=== PATIENT | female | born 1955 | race Caucasian/White ===

== ENCOUNTER 2019-08-06 09:58 | Outpatient (CLI) | payer OTHER, SELFPAY ==
--- NOTE | 2019-08-06 11:00 | NEURO_ITS ---
Patient Number: [id number] Impression: # Complains of numbness of left hand. # Mild left Carpal Tunnel Syndrome. # No ulnar neuropathy. # Normal needle/EMG exam. Nerve Conduction Studies Anti Sensory Summary Table Stim Site NR Peak (ms) P-T Amp (?V) Site1 Site2 Delta-P (ms) Dist (cm) Douglas (m/s) Left Median Anti Sensory (2-3nd Digit) Wrist 3.2 42.5 Wrist 2-3nd Digit 3.2 14.0 44 Wrist 3.2 21.8 Wrist 2-3nd Digit 3.2 14.0 44 Left Radial Anti Sensory (Base 1st Digit) Wrist 1.8 16.1 Wrist Base 1st Digit 1.8 0.0 Left Ulnar Anti Sensory (5th Digit) Wrist 2.1 51.8 Wrist 5th Digit 2.1 14.0 67 Motor Summary Table Stim Site NR Onset (ms) O-P Amp (mV) Site1 Site2 Delta-0 (ms) Dist (cm) Douglas (m/s) Left Median Motor (Abd Poll Brev) Wrist 3.4 3.5 Elbow Wrist 5.3 30.0 57 Elbow 8.7 1.6 Left Ulnar Motor (Abd Dig Minimi) Wrist 2.1 5.6 A Elbow Wrist 4.7 28.0 60 A Elbow 6.8 5.0 F Wave Studies NR F-Lat (ms) L-R F-Lat (ms) Left Median (Mrkrs) (Abd Poll Brev) 29.24 Left Ulnar (Mrkrs) (Abd Dig Min) 29.61 EMG Side Muscle Nerve Root Ins Act Fibs Amp Dur Recrt Comment Left 1stDorInt Ulnar C8-T1 Nml Nml Nml Nml Nml Left Ext Indicis Radial (Post Int) C7-8 Nml Nml Nml Nml Nml Left Ext Digitorum Radial (Post Int) C7-8 Nml Nml Nml Nml Nml Left BrachioRad Radial C5-6 Nml Nml Nml Nml Nml Left PronatorTeres Median C6-7 Nml Nml Nml Nml Nml Left Abd Poll Brev Median C8-T1 Nml Nml Nml Nml Nml MTDD
== END 2019-08-06 09:59 | disposition home or self-care (01) ==
PROVIDERS: PCP Family Medicine Adolescent Medicine; Visit Provider Physician Assistant
DX: R20.0 Anesthesia of skin (principal); G56.02 Carpal tunnel syndrome, left upper limb
CPT/HCPCS: 95886; 95909

== ENCOUNTER 2020-02-15 14:12 | Outpatient (CLI) | payer OTHER, SELFPAY ==
--- NOTE | ~2020-02-15 | US_ITS ---
EXAMINATION: US carotid duplex BI DATE: 02/15/2020 15:00 INDICATION: Left hemiparesis. TECHNIQUE: Grayscale, color Doppler, and pulsed Doppler images of the cervical carotid arteries were obtained. The degree of vessel stenosis is placed in one of the following categories: normal, <50%, 5 0-69%, >=70% but less than near-occlusion, near-occlusion, or total occlusion. Note that percent sten osis relative to normal distal artery lumen diameter is indirectly measured from velocity measurement s as described by David, et al. Radiology 2003; 229:340-346. COMPARISON: None. FINDINGS: RIGHT: The right common carotid artery (CCA) peak systolic velocity (PSV) is 90 cm/s. The right internal car otid artery (ICA) PSV is 90 cm/s. The right ICA end-diastolic velocity (EDV) is 39 cm/s. The right IC A/CCA PSV ratio is 1.0. Grayscale and color Doppler images yield an estimate of <50% diameter reducti on from plaque in the ICA. There is antegrade flow in the right vertebral artery. LEFT: The left CCA PSV is 82 cm/s. The left ICA PSV is 66 cm/s. The left ICA EDV is 29 cm/s. The left ICA/C CA PSV ratio is 0.8. Grayscale and color Doppler images yield an estimate of <50% diameter reduction from plaque in the ICA. There is antegrade flow in the left vertebral artery. IMPRESSION: 1. <50% stenosis in the right internal carotid artery. 2. <50% stenosis in the left internal carotid artery. Reviewed, dictated and finalized at location A. E DISPOSAL PLANT OPERATOR
== END 2020-02-15 14:13 | disposition home or self-care (01) ==
PROVIDERS: PCP Family Medicine Adolescent Medicine; Visit Provider Family Medicine Adolescent Medicine
DX: I65.23 Occlusion and stenosis of bilateral carotid arteries (principal)
CPT/HCPCS: 93880

== ENCOUNTER → 2020-07-11 13:26 | Outpatient (CLI) | payer OTHER, SELFPAY ==
--- NOTE | ~2020-07-11 | MM_ITS ---
EXAMINATION: MM screening [facility] BI w heather HISTORY: Screening TECHNIQUE: Craniocaudal and mediolateral oblique 3-D tomosynthesis images were obtained and synthetic 2-D images were generated. CAD analysis was submitted and interpreted. COMPARISON: Comparison to multiple prior studies sequentially, with oldest reviewed study dated 12/27. BREAST PARENCHYMAL COMPOSITION: Breast composed of scattered areas of fibroglandular density. FINDINGS: There is no evidence of suspicious mass, calcification, or architectural distortion to sugg est malignancy in either breast. There has been no suspicious interval change. IMPRESSION: 1. No mammographic evidence of malignancy. 2. Recommend routine screening mammography in one year. BI-RADS Category 1: Negative Reviewed, dictated and finalized at location A.
--- NOTE | ~2020-07-11 | DEXA_ITS ---
Bone Density Report Name: Fabi Jin Age: 64 Sex: Female Ethnicity: White Date of : 1955 Indication: postmenopausal; screening for osteoporosis; height loss; asthma or emphysema; Referring Provider: Kenzie, Moon Study: Bone densitometry was performed. Exam Date: July 11, 2020 Accession number: [id number] Bone Density: Region BMD T-score Z-score Classification AP Spine (L1-L4) 1.075 0.3 2.0 Normal Femoral Neck (Left) 0.897 0.4 1.9 Normal Total Hip (Left) 1.121 1.5 2.7 Normal Femoral Neck (Right) 0.842 -0.1 1.4 Normal Total Hip (Right) 0.968 0.2 1.4 Normal Total Hip Mean 1.045 0.9 2.1 Normal World Health Organization criteria for BMD impression classify patients as: Normal (T-score at or above -1.0), Osteopenia (T-score between -1.0 and -2.5), or Osteoporosis (T-score at or below -2.5). 10-year Fracture Risk: FRAX not reported because: All T-scores for Spine Total, Hip Total, Femoral Neck at or above -1.0 Previous Exams: Region Exam Age BMD T-score BMD Change BMD Change Date g/cm2 vs Baseline vs Previous AP Spine(L1-L4) 07/11/2020 64 1.075 0.3 -0.048 0.020 06/04/2016 60 1.055 0.1 -0.069 -0.069 05/20/2006 50 1.124 0.7 Total Hip(Left) 07/11/2020 64 1.121 1.5 -0.191 -0.081* 06/04/2016 60 1.202 2.1 -0.110 -0.110 05/20/2006 50 1.312 3.0 Total Hip(Right) 07/11/2020 64 0.968 0.2 -0.252 -0.148* 06/04/2016 60 1.116 1.4 -0.104 -0.104 05/20/2006 50 1.220 2.3 *Denotes significance at 95% confidence level, LSC for AP Spine = 0.022 g/cm2, LSC for Total Hip = 0.027 g/cm2 Clinical Information Provided by Patient: Has used the following medications: Vitamin D Has the following medical conditions: Asthma or Emphysema Patient maximum height was 65.5 Menopause Age: 49 No regular weight bearing exercise Drinks caffeinated beverages Onset of menses at age 11 Number of children 4 Impression: The patient has normal bone mass. The BMD for the Total Hip(Left) decreased, changing by -0.081 since the last DXA exam. The BMD for the Total Hip(Right) decreased, changing by -0.148 since the last DXA exam. Discussion: BONE DENSITY IS ABOVE THE MINIMUM DESIRABLE LEVEL AT ALL SKELETAL SITES TESTED. This patient?s bone mineral density is above the minimum desirable level (T-score -1.0 or better)
== END ==
PROVIDERS: PCP Family Medicine Adolescent Medicine; Visit Provider Nurse Practitioner
DX: Z12.31 Encounter for screening mammogram for malignant neoplasm of breast (principal); Z78.0 Asymptomatic menopausal state
CPT/HCPCS: 77063; 77067; 77080

== ENCOUNTER → 2021-02-04 09:59 | Outpatient (CLI) | payer MEDICARE, OTHER, SELFPAY ==
--- NOTE | ~2021-02-04 | XR_ITS ---
EXAMINATION: XR chest 2V DATE: 02/04/2021 10:57 INDICATION: Dyspnea on exertion, history of COVID 19 TECHNIQUE: Frontal and lateral views of the chest are obtained COMPARISON: 06/09/2017 FINDINGS: The lungs are free of acute opacities. There is no pleural effusion or pneumothorax. The ca rdiomediastinal silhouette is normal. There is moderate thoracic spondylosis. Suture anchors are note d in the left humeral head. IMPRESSION: 1. No acute cardiopulmonary abnormality. Reviewed, dictated and finalized at location A. SURVEYOR
== END ==
PROVIDERS: PCP Family Medicine Adolescent Medicine; Visit Provider Family Medicine Adolescent Medicine
DX: R06.09 Other forms of dyspnea (principal)
CPT/HCPCS: 71046

== ENCOUNTER → 2021-07-13 10:02 | Outpatient (CLI) | payer MEDICARE, OTHER, SELFPAY ==
--- NOTE | ~2021-07-13 | MM_ITS ---
EXAMINATION: MM screening [facility] BI w heather HISTORY: Screening mammogram TECHNIQUE: Craniocaudal and mediolateral oblique 3-D tomosynthesis images were obtained and synthetic 2-D images were generated. CAD analysis was submitted and interpreted. COMPARISON: 07/11/2020, 09/08/2018, 05/03/2016 BREAST PARENCHYMAL COMPOSITION: There are scattered areas of fibroglandular density. FINDINGS: There is a chronic and stable asymmetry in the outer left breast on the craniocaudal view. There is no suspicious mass, calcification, or architectural distortion to suggest malignancy in eith er breast. There has been no suspicious interval change. IMPRESSION: 1. No mammographic evidence of malignancy. 2. Recommend routine screening mammography in one year. BI-RADS Category 2: Benign finding(s). Reviewed, dictated and finalized at location A.
== END ==
PROVIDERS: PCP Family Medicine Adolescent Medicine; Visit Provider Obstetrics & Gynecology Gynecology
DX: Z12.31 Encounter for screening mammogram for malignant neoplasm of breast (principal)
CPT/HCPCS: 77063; 77067

== ENCOUNTER 2021-07-28 07:40 | Outpatient (CLI) | payer MEDICARE, OTHER, SELFPAY ==
--- NOTE | 2021-07-28 07:55 | ECHO_ITS ---
Patient Info Name: Fabi Jin Age: 65 years : 1955 Gender: Female Ht: 63 in Wt: 240 lbs BSA: 2.26 m2 HR: 75 bpm BP: 138 / 91 mmHg Heart Rhythm: Sinus Rhythm Technical Quality: Good Exam Date: 07/28/2021 8:08 AM Exam Location: [facility] Pulmonary Patient Status: Outpatient Admit Date: 07/28/2021 Staff Ordering Physician: Nico Bronson MD Drum Drier Operator: Gloria Shen RDCS Attending Provider: Nico Bronson MD Referring Physician: Audie LIZ; Exam Type: CA echo doppler color flow Study Info Indications R06.02 - Shortness of breath Complete two-dimensional, color flow and Doppler transthoracic echocardiogram is performed. Summary 1. Complete two-dimensional, color flow and Doppler transthoracic echocardiogram is performed. 2. Left ventricular chamber dimension is normal. 3. Left ventricular systolic function is normal, estimated at 60-65%. 4. The left ventricular diastolic function is grade I diastolic dysfunction. 5. E/e' 15 is elevated. 6. Left atrial chamber dimension is mildly enlarged. 7. The mitral valve has mildly calcified annulus. 8. There is trace mitral valve regurgitation. 9. There is trace tricuspid valve regurgitation. 10. No pulmonary hypertension, estimated pulmonary arterial systolic pressure is 24 mmHg. Left Ventricle E/e' 15 is elevated. Left ventricular chamber dimension is normal. Left ventricular systolic function is normal, estimated at 60-65%. The left ventricular diastolic function is grade I diastolic dysfunction. Right Ventricle Right ventricular systolic function is normal and with normal TAPSE 2.4 cm. Right ventricular chamber dimension is normal. Left Atria Left atrial chamber dimension is mildly enlarged. Right Atria Right atrial chamber dimension is normal. Aortic Valve The aortic valve is trileaflet. There is no aortic valve stenosis. There is no aortic valve regurgitation. Pulmonic Valve There is no pulmonic regurgitation. Mitral Valve The mitral valve has mildly calcified annulus. There is no mitral valve stenosis. There is trace mitral valve regurgitation. Tricuspid Valve There is trace tricuspid valve regurgitation. No pulmonary hypertension, estimated pulmonary arterial systolic pressure is 24 mmHg. Pericardium/Pleural There is no pericardial effusion. Inferior Vena Cava Normal inferior vena cava with >50% collapse upon inspiration consistent with normal right atrial pressure, 5 mmHg. Aorta The aortic root size at the sinus of Valsalva is normal. Left Ventricular Outflow Tract Name Value Normal LVOT 2D LVOT Diameter 2.0 cm LVOT Doppler LVOT Peak Gradient 4 mmHg LVOT Mean Gradient 2 mmHg LVOT VTI 26 cm LVOT VTI/AV VTI Ratio 0.8 LVOT Stroke Volume 84 ml LVOT CO 4.5 l/min LVOT CI 2.0 l/min/m2 Pulmonic Valve
--- NOTE | 2021-07-28 13:38 | WPDSIXMINUTE ---
Six Minute Walk Procedure Procedure Performed Pulmonary Stress Test (6 min walk) Six Minute Walk Six Minute Walk: This is a 6 minute walk test. The test was performed and interpreted in accordance with the 2014 ERS/ATS task force guidelines. Findings: The patient's resting room air oxygen saturation measured by pulse oximetry was 94% and heart rate was 69 bpm. Patient ambulated for 274 meters and oxygen saturation remained 90 to 92%. Heart rate at the end of the study was 113 bpm. The patient did not qualify for supplemental oxygen at rest or with ambulation. There are no prior studies for comparison.
--- NOTE | 2021-07-28 13:39 | WPDPFTINT ---
PFT Procedure Performed PFT Procedure Performed Spirometry with Pre/Post Bronchodilator Plethysmography (Lung Vol) Diffusing Cap (DLCO) Flow Vol Loop PFT Interpretation This is a pulmonary function test with pre and post-bronchodilator spirometry, plethysmography and diffusing capacity. The test was performed and results interpreted in accordance with the 2019 and 2005 ATS/ERS Task Force guidelines respectively using the Global Lung Function Initiative-2012 reference equations. Patient demonstrated good effort and cooperation. Reproducibility criteria were met. The quality of the pre bronchodilator spirometry maneuver was Grade A and post bronchodilator spirometry maneuver was Grade A. Findings: Spirometry: There is decreased maximal expiratory airflow at all lung volumes with concave expiratory flow tracing. The contour the inspiratory flow tracing is normal. The pre bronchodilator FVC is 2.82 L, 96% predicted. The pre bronchodilator FEV1 is 1.77 L, 77% predicted. The the pre bronchodilator FEV1: FVC ratio 63%. The post bronchodilator FVC is 3.04 L, representing an 8% increase. The post bronchodilator FEV1 is 2.08 L, representing an 18% increase. The post bronchodilator FEV1: FVC ratio 68%. Plethysmography: The total lung capacity is 4.96 L, 100% predicted. The functional residual capacity is 2.60 L, 92% predicted. The residual volume is 2.14 L, 104% predicted. Diffusing capacity: The diffusing capacity unadjusted for hemoglobin and carboxyhemoglobin is 17.4, 84% predicted. The diffusing capacity adjusted for alveolar volume is 3.77, 86% predicted. Impression: There is a mild obstructive abnormality with a normal FEV1 and with significant improvement after inhaling a single dose of albuterol. The lung volumes are normal. The diffusing capacity is normal. There are no prior studies for comparison
== END 2021-07-28 07:41 | disposition home or self-care (01) ==
LOC: ANHCARD 07:42
PROVIDERS: PCP Family Medicine Adolescent Medicine; Visit Provider Internal Medicine Pulmonary Disease
DX: R06.02 Shortness of breath (principal); R06.00 Dyspnea, unspecified
CPT/HCPCS: 93306; 94060; 94618; 94726; 94729

== ENCOUNTER → 2021-11-14 11:32 | Outpatient (CLI) | payer MEDICARE, OTHER, SELFPAY ==
--- NOTE | ~2021-11-14 | US_ITS ---
EXAMINATION: US transvaginal DATE: 11/14/2021 12:07 INDICATION: Left pelvic fullness Comparison:Ultrasound dated TECHNIQUE: Multiple endovaginal sonographic images of the pelvis performed. FINDINGS: The uterus measures 8.5 x 5.6 x 6.7 cm. There is a partially calcified uterine fibroid vivek uring 5.3 x 4.8 x 4.3 cm The endometrial complex measures 4.5 mm. The ovaries are not visualized. There is no free fluid in the pelvis. There are no abnormal masses seen on either side. IMPRESSION: 1. Partially calcified uterine fibroid measuring 5.3 cm. Reviewed, dictated and finalized at location A.
== END ==
PROVIDERS: PCP Family Medicine Adolescent Medicine; Visit Provider Nurse Practitioner
DX: R10.2 Pelvic and perineal pain (principal); D25.9 Leiomyoma of uterus, unspecified
CPT/HCPCS: 76830

== ENCOUNTER 2022-01-15 08:40 | Outpatient (CLI) | payer MEDICARE, OTHER, SELFPAY ==
--- NOTE | 2022-02-09 17:15 | WPDHOMESLEEP ---
Sleep Study - Home Unattended Date of Study: 01/15/22 Ordering Provider: Nico Bronson MD Interpreting Provider: Awa Short, DO Home Sleep Study Type: Watch PAT Height: 1.61 m Weight: 108.862 kg Body Mass Index: 41.8 Neck Circumference (inches): 16.75 [place]: 8 Reason for Sleep Study Previous diagnosis of LARRY. Compliant with CPAP. Machine stopped working in May 2021. Sleep History The patient is a 66-year-old female with mild intermittent asthma, hypertension, hyperlipidemia, GERD, obesity and previously diagnosed sleep apnea that had a sleep study ordered by her chart calculator to restart the patient on CPAP. The patient rarely awakens from sleep short of breath. She occasionally awakens at night with heartburn, belching or cough. She occasionally snores but it is rarely loud enough that others complain. She frequently has trouble sleeping when she has a cold. She occasionally wakes up gasping for air throughout the night. She occasionally has breathing problems at night observed by herself or others. She occasionally sweats excessively at night. She rarely has heart palpitations or irregular heartbeats during the night. He rarely falls asleep during the day and rarely falls asleep while driving. She denies sleep paralysis and cataplexy. She rarely has trouble at school or work due to sleepiness. She occasionally experiences vivid dreamlike scenes upon awakening or falling asleep. She denies feeling afraid of going to sleep. She rarely has nightmares. She occasionally remembers her dreams. She constantly has thoughts racing through her mind. She occasionally feels sad or depressed. She frequently has anxiety. She occasionally has muscular tension. She rarely notices parts of her body jerk. She rarely kicks during the night. She occasionally has crawling and aching feelings in her legs and frequently has leg pain during the night. She denies grinding her teeth during sleep but occasionally awakens with morning jaw pain. She is rarely bothered by pain during the day and occasionally awakened by pain during the night. She constantly wakes up feeling stiff morning. She frequently wakes up with sore achy muscles. She occasionally wakes up with pain in the neck, spine and other joints. The patient goes to bed between 10-11 p.m. on both weekdays and weekends. He can take her anywhere from 1-2 hours to fall asleep. She wakes up 4-6 times throughout the night. When she awakens, he will watch a show on television. It can take her 1-3 hours to fall back asleep. He wakes up between 4-7 a.m. on weekdays and between 5-6 a.m. on the weekends. She typically gets 6-7 hours of sleep per night. She will stay in bed for 10 minutes up to an hour after waking up in the morning. She does not currently live with anyone. She does not consume any caffeinated beverages within 2 hours of bedtime. She does not engage in physical exercise before bedtime. She will watch television before falling asleep. She denies taking naps in the afternoon or the evening. She drinks 1-2 caffeinated beverages in the morning. She drinks 1-4 alcoholic beverages per day. She denies tobacco use. She will use CBD sleep gummies occasionally. [facility] Surgical History Surgical History Hx of adenoidectomy Hx of rotator cuff surgery left 09/14 Hx of tonsillectomy Family History Family History Father Lung cancer Family history of arthritis Hypertension Mother Diabetes mellitus Family history of arthritis Heart disease Grandparent Family history of arthritis Social History Social History Smoking status: Never smoker Second hand tobacco smoke exposure: No Alcohol intake: current Drinks per week: 5 Substance use: never Substance use type:
[2022-02-09 17:31] VITALS: BMI 41.8
--- NOTE | 2022-04-05 15:35 | SLEEP ---
new calls under [id number]
== END 2022-01-16 11:02 | disposition home or self-care (01) ==
LOC: ANHCSM 08:42
PROVIDERS: PCP Family Medicine Adolescent Medicine; Visit Provider Internal Medicine Pulmonary Disease
DX: G47.33 Obstructive sleep apnea (adult) (pediatric) (principal)
CPT/HCPCS: 95800

== ENCOUNTER 2022-04-01 05:13 | Emergency (ER) | payer MEDICARE, OTHER, SELFPAY ==
[2022-04-01] VITALS (25 sets, daily range): BP systolic 97–125; BP diastolic 52–76; PULSE 76–95; RESP 13–19; TEMP 36.4; O2SAT 93–100
--- NOTE | ~2022-04-01 | XR_ITS ---
EXAMINATION: XR chest 2V DATE: 04/01/2022 06:11 INDICATION: Chest tightness TECHNIQUE: PA and lateral views of the chest are obtained. COMPARISON: 02/04/2021 FINDINGS: There is mild atelectasis of the lung bases. No pleural effusion or pneumothorax. The cardi omediastinal silhouette is normal. There is severe thoracic spondylosis. Suture anchors are noted in the left humeral head. IMPRESSION: 1. No acute cardiopulmonary abnormality. Reviewed, dictated and finalized at location A. TION SPECIALIST
--- NOTE | ~2022-04-01 | CT_ITS ---
EXAMINATION: CTA chest PE protocol DATE: 04/01/2022 07:02 INDICATION: Chest pain TECHNIQUE: Computed tomography angiography (CTA) of the chest was performed with 100 mL Omnipaque-350 intravenous contrast timed to evaluate the pulmonary arteries. Coronal maximum intensity projection 3D-reconstructions were created by the technologist. The dose-length product (DLP) was 824.78 mGy-cm. Automated exposure control and iterative reconstruction technique were employed. COMPARISON: 06/09/2017 FINDINGS: The pulmonary arteries are well-opacified. No pulmonary embolism is identified. Respiratory motion artifact slightly limits the examination. There is dependent atelectasis. No pleural effusion or pneumothorax. No pathologically enlarged thoracic lymph nodes are identified. The heart size is n ormal. There is severe thoracic spondylosis. Again noted is focal hernia posteriorly in the left earline diaphragm containing fat. There are two stable fat-containing masses of the liver. IMPRESSION: 1. No pulmonary embolism or acute cardiopulmonary abnormality. Reviewed, dictated and finalized at location A. RATOR MANNEQUIN
--- NOTE | 2022-04-01 05:15 | ECG_ITS ---
Measurements Intervals [place] Rate: 77 P: 25 OR: 193 QRS: -32 QRSD: 93 T: -15 QT: 364 QTc: 413 Interpretive Statements SINUS RHYTHM WITH SINUS ARRHYTHMIA LEFT AXIS DEVIATION [QRS AXIS < -30] LOW QRS VOLTAGE IN PRECORDIAL LEADS [QRS DEFLECTION < 1.0 mV IN CHEST LEADS] PATTERN CONSISTENT WITH PULMONARY DISEASE POOR R-WAVE PROGRESSION NONSPECIFIC T-WAVE ABNORMALITY ABNORMAL ECG NO PREVIOUS ECG AVAILABLE FOR COMPARISON Electronically Signed On 04-01-2022 11:32:23 IRONER OR PRESSER by Shelton Bridges M.D.
[2022-04-01 05:30] LABS: Basophils Absolute Auto 0.1 K/mm3 (0.0-0.1); Basophils Percent Auto 0.8 % (0.2-1.2); Eosinophils Absolute Auto 0.1 K/mm3 (0-0.3); Eosinophils Percent Auto 1.8 % (0-4.4); Hematocrit 37.3 % (37.0-47.0); Hemoglobin 12.9 g/dL (12.0-15.0); Immature Granulocyte Absolute 0.03 K/mm3 (0.00-0.031); Immature Granulocyte Percent A 0.4 % (0-0.5); Lymphocytes Absolute Auto 2.88 K/mm3 (0.9-3.2); Lymphocytes Percent Auto 38.9 % (18.3-44.2); Mean Corpuscular HGB Conc 34.6 g/dl (32-36); Mean Corpuscular Hemoglobin 31.6 pg (26-34); Mean Corpuscular Volume 91.4 fl (80-100); Mean Platelet Volume 9.2 fl (7.4-10.4); Monocytes Absolute Auto 0.6 K/mm3 (0.1-0.6); Neutrophils Absolute Auto 3.7 K/mm3 (1.3-6.7); Neutrophils Percent Auto 50.1 % (45.5-73.1); Platelet Count Result 285 k/mm3 (150-375); Red Blood Count 4.08 M/mm3 (4.2-5.4); Red Cell Distribution Width 12.4 % (11.5-14.5); White Blood Count 7.4 K/mm3 (4.5-10.0)
--- NOTE | 2022-04-01 05:32 | ED.GENADULT ---
HPI - General Adult General Chief complaint: Chest Pain <Bernardino Garcia MD - Last Filed: 04/01/22 19:07> Stated complaint: Chest pain/tightness, right arm numbness <Bernardino Garcia MD - Last Filed: 04/01/22 19:07> Time Seen by Provider: 04/01/22 05:17 <Bernardino Garcia MD - Last Filed: 04/01/22 19:07> History of Present Illness HPI narrative: 66-year-old female presenting to the emergency department for evaluation for chest pain. Patient reports that she was lying in bed and woke up approximately 430 and patient was having chest tightness. Patient states the pain did radiate to her right arm. Patient states the pain is currently resolved but she still has some chest tightness. When the pain occurred patient states she had no shortness of breath no diaphoresis or nausea. Patient denies any lightheadedness with this. Patient denies any radiation of the pain other than to her right arm. Patient does have a history of asthma. Patient denies any prior history of coronary disease. Patient did have a stress test preop approximately 10 years ago. Patient denies any prior history of Angiocath. Patient did take 5 baby aspirin when she woke up with the pain. <Bernardino Garcia MD - Last Filed: 04/01/22 19:07> Related Data Home medications: Home Medications Medication Instructions Recorded Confirmed aspirin 81 mg tablet,delayed 81 mg PO DAILY 04/19/21 01/23/22 release magnesium 250 mg tablet 250 mg PO DAILY 04/19/21 01/23/22 omega-3 fatty acids 1,000 mg 1,000 mg PO DAILY 04/19/21 01/23/22 capsule zinc sulfate 50 mg zinc (220 mg) 50 mg PO DAILY 04/19/21 01/23/22 capsule (Orazinc) cholecalciferol (vitamin D3) 50 50 mcg PO DAILY 06/29/21 01/23/22 mcg (2,000 unit) capsule hydrocodone 5 mg-acetaminophen 325 1 tablet PO Q6H PRN 11/27/21 01/23/22 mg tablet multivitamin (Daily Multi-Vitamin 1 tablet PO DAILY 12/26/21 01/23/22 tablet) <Bernardino Garcia MD - Last Filed: 04/01/22 19:07> Allergies/adverse reactions: Allergies Allergy/AdvReac Type Severity Reaction Status Date / Time erythromycin base Allergy Unknown upset Verified 01/23/22 10:37 stomach Penicillins Allergy Unknown Upset Verified 01/23/22 10:37 stomach <Bernardino Garcia MD - Last Filed: 04/01/22 19:07> Review of Systems Review of Systems: CONSTITUTIONAL: Denies fever, chills, or sweats. EYES: Denies visual changes, redness, or discharge. ENT: Denies rhinorrhea, congestion, sore throat, or otalgia. CARDIOVASCULAR: See HPI RESPIRATORY: Denies cough or dyspnea. GASTROINTESTINAL: Denies abdominal pain, nausea, vomiting, or diarrhea. GENITOURINARY: Denies dysuria or hematuria. SKIN: Denies rash or itching. MUSCULOSKELETAL: Denies back pain, joint pain, or myalgia. NEUROLOGIC: Denies headache, numbness, or weakness. <Bernardino Garcia MD - Last Filed: 04/01/22 19:07> [facility] Surgical History Surgical History: Surgical History Hx of adenoidectomy Hx of rotator cuff surgery left 09/14 Hx of tonsillectomy <Bernardino Garcia MD - Last Filed: 04/01/22 19:07> Family History Family History: Family History Father Lung cancer Family history of arthritis Hypertension Mother Diabetes mellitus Family history of arthritis Heart disease Grandparent Family history of arthritis <Bernardino Garcia MD - Last Filed: 04/01/22 19:07> Social History Social History: Social History Smoking status: Never smoker Second hand tobacco smoke exposure: No Alcohol intake: current Drinks per week: 5 Substance use: never Substance use type: does not use Living arrangements: alone Occupation/Education: retired Gender identity (if verbalized by the patient): Female Sexual Orientation (if
[2022-04-01] MEDS: NITROGLYCERIN SL 0.4 MG TABLET SUBLINGUAL (05:38)
[2022-04-01 05:40] LABS: Alanine Aminotransferase 34 U/L (6-35); Albumin Level 4.6 g/dL (3.5-5.1); Alkaline Phosphatase 71 U/L (38-126); Anion Gap 7 mmol/L (8-16); Aspartate Amino Transferase 37 U/L (14-36); Bilirubin,Total 0.6 mg/dL (0.2-1.3); Blood Urea Nitrogen 31 mg/dL (7-17); Calcium 9.1 mg/dL (8.4-10.2); Carbon Dioxide 26 mmol/L (22-30); Chloride 98 mmol/L (98-107); Estimated CRCL calculation 49 ml/min; Estimated Glomerular Filt Rate 45; Glucose 91 mg/dL (65-110); Lipase 147 U/L (23-300); Potassium 3.5 mmol/L (3.4-5.0); Sodium 131 mmol/L (137-145)
--- NOTE | 2022-04-01 05:42 | PC.NURSE ---
Talked to Maribell in lab at 05:42 to add on D Dimer
[2022-04-01 05:48] LABS: Prothrombin Time 12.8 Seconds (11.1-14.7)
[2022-04-01 05:52] LABS: Troponin I < 0.012 ng/mL (0.000-0.034)
--- NOTE | 2022-04-01 05:53 | ECG_ITS ---
Measurements Intervals [place]vin Rate: 88 P: 59 CO: 190 QRS: -27 QRSD: 106 T: 28 QT: 371 QTc: 450 Interpretive Statements SINUS RHYTHM BORDERLINE LEFT AXIS DEVIATION [QRS AXIS < -20] NONSPECIFIC ST ABNORMALITY. ABNORMAL ECG NO PREVIOUS ECG AVAILABLE FOR COMPARISON Electronically Signed On 04-01-2022 11:32:06 STERILE PROCESSING MANAGER by Shelton Bridges M.D.
[2022-04-01 05:59] LABS: Partial Thromboplastin Time 30.1 SECONDS (22.3-36.8)
[2022-04-01 06:19] LABS: D Dimer 0.85 ug/mL (<0.48)
[2022-04-01 06:37] LABS: Influenza A QL RT-PCR Negative (Negative); Influenza B QL RT-PCR Negative (Negative); RSV RNA, RT-PCR Negative (Negative); SARS-CoV-2 RNA PCR Negative
[2022-04-01 08:56] LABS: Troponin I < 0.012 ng/mL (0.000-0.034)
== END 2022-04-01 09:35 | disposition home or self-care (01) ==
PROVIDERS: Emergency Provider Emergency Medicine; PCP Family Medicine Adolescent Medicine
DX: R07.89 Other chest pain (principal); Z20.822 Contact with and (suspected) exposure to COVID-19; J45.909 Unspecified asthma, uncomplicated; Z79.82 Long term (current) use of aspirin; R94.31 Abnormal electrocardiogram [ECG] [EKG]
CPT/HCPCS: 36415; 71046; 71275; 80053; 83690; 84484; 85025; 85380; 85610; 85730; 87637; 93005; 99284; A9270; Q9967

== ENCOUNTER 2022-05-02 08:14 | Outpatient (CLI) | payer MEDICARE, OTHER, SELFPAY ==
--- NOTE | 2022-05-10 19:07 | WPDSLEEPSTUD ---
Sleep Study Date of Study: 05/02/22 Ordering Provider: Nico Bronson MD Interpreting Physician: Mesha Swift MD Sleep Study Type: CPAP Titration Height: 1.57 m Weight: 108.862 kg Body Mass Index: 43.9 Neck Circumference (inches): 17.5 [place]: 5 Reason for Sleep Study * 01/15/22 WatchPat showing overall AHI of 12.3 with desaturation down to 79%.?? Sleep History Fabi Jin is a?66-year-old female with mild intermittent asthma, hypertension, hyperlipidemia, GERD, obesity and previously diagnosed sleep apnea. She had a WatchPat ordered 01.15.2023 to restart the patient on CPAP.? The patient rarely awakens from sleep short of breath.? She occasionally awakens at night with heartburn, belching, or coughing. She occasionally snores but it is rarely loud enough that others complain.? She frequently has trouble sleeping when she has a cold.? She occasionally wakes up gasping for air throughout the night.? She occasionally has breathing problems at night observed by herself or others.? She occasionally sweats excessively at night.? She rarely has heart palpitations or irregular heartbeats during the night.? He rarely falls asleep during the day and rarely falls asleep while driving.? She denies sleep paralysis and cataplexy.? She rarely has trouble at school or work due to sleepiness.? She occasionally experiences vivid dreamlike scenes upon awakening or falling asleep.? She denies feeling afraid of going to sleep.? She rarely has nightmares.? She occasionally remembers her dreams.? She constantly has thoughts racing through her mind.? She occasionally feels sad or depressed.? She frequently has anxiety.? She occasionally has muscular tension.? She rarely notices parts of her body jerk.? She rarely kicks during the night.? She occasionally has crawling and aching feelings in her legs and frequently has leg pain during the night.? She denies grinding her teeth during sleep but occasionally awakens with morning jaw pain.? She is rarely bothered by pain during the day and occasionally awakened by pain during the night.? She constantly wakes up feeling stiff morning.? She frequently wakes up with sore achy muscles.? She occasionally wakes up with pain in the neck, spine and other joints. The patient goes to bed between 10-11 p.m. on both weekdays and weekends.? He can take her anywhere from 1-2 hours to fall asleep.? She wakes up 4-6 times throughout the night.? When she awakens, she watches a show on television.? It can take her 1-3 hours to fall back asleep.? She wakes up between 4-7 a.m. on weekdays and between 5-6 a.m. on the weekends.? She typically gets 6-7 hours of sleep per night.? She will stay in bed for 10 minutes up to an hour after waking up in the morning.? She does not currently live with anyone.? She will watch television before falling asleep.? She denies taking naps in the afternoon or the evening.? Habits: She drinks 1-2 caffeinated beverages in the morning.? She drinks 1-4 alcoholic beverages per day.? She denies tobacco use.? She will use CBD sleep gummies occasionally. [facility] Past Medical History Medical History (Updated 05/10/22 @ 19:13 by Mesha Swift MD) Asthma Carotid stenosis, bilateral Diastolic dysfunction (07/2021) Essential (primary) hypertension Low back pain, unspecified Major depressive disorder, recurrent, moderate LARRY (obstructive sleep apnea) Pure hypercholesterolemia, unspecified Surgical History Surgical History Hx of adenoidectomy Hx of rotator cuff surgery left 09/14 Hx of tonsillectomy Family History Family History Father Lung cancer Family history of arthritis Hypertension Mother Diabetes mellitus Family history of arthritis Heart disease Grandparent Family history of arthritis Social History Social History (Reviewed 05/09/22 @ 13:59 b
[2022-05-10 19:33] VITALS: BMI 43.9
== END 2022-05-03 07:35 | disposition home or self-care (01) ==
LOC: ANHCSM 08:17
PROVIDERS: PCP Family Medicine Adolescent Medicine; Visit Provider Internal Medicine Pulmonary Disease
DX: G47.33 Obstructive sleep apnea (adult) (pediatric) (principal)
CPT/HCPCS: 95811

== ENCOUNTER → 2022-09-18 15:49 | Outpatient (CLI) | payer MEDICARE, OTHER, SELFPAY ==
--- NOTE | ~2022-09-18 | MM_ITS ---
EXAMINATION: MM screening [facility] BI w heather HISTORY: Screening mammogram TECHNIQUE: Craniocaudal and mediolateral oblique 3-D tomosynthesis images were obtained and synthetic 2-D images were generated. CAD analysis was submitted and interpreted. COMPARISON: 07/13/2021, 07/11/2020, 09/08/2018 BREAST PARENCHYMAL COMPOSITION: There are scattered areas of fibroglandular density. FINDINGS: No suspicious mass, calcification, or architectural distortion are identified in either heath ast to suggest malignancy. There has been no suspicious interval change. IMPRESSION: 1. No mammographic evidence of malignancy. 2. Recommend routine screening mammography in one year. BI-RADS Category 1: Negative Reviewed, dictated and finalized at location A.
== END ==
PROVIDERS: PCP Family Medicine Adolescent Medicine; Visit Provider Family Medicine Adolescent Medicine
DX: Z12.31 Encounter for screening mammogram for malignant neoplasm of breast (principal)
CPT/HCPCS: 77063; 77067

== ENCOUNTER 2023-01-24 15:22 | Outpatient (CLI) | payer MEDICARE, OTHER, SELFPAY ==
--- NOTE | ~2023-01-24 | CT_ITS ---
EXAMINATION: CT abdomen pelvis wo con DATE: 01/24/2023 15:41 INDICATION: Left lower quadrant abdominal pain TECHNIQUE: Computed tomography (CT) of the abdomen and pelvis was performed without intravenous contr ast. The dose-length product was 1417.80 mGy-cm. COMPARISON: No prior studies for comparison. FINDINGS: There is focal eventration of the diaphragm posteriorly bilaterally. Heart size normal. No significant pleural or pericardial effusion. There is a small benign fat containing mass of the liver measuring 10 mm. There is a second 12 mm lipoma of the left hepatic lobe. The spleen, pancreas, adre nal glands and kidneys are unremarkable. There is thickening of the sigmoid colon with surrounding in flammation, consistent with diverticulitis. Enlarged fibroid uterus. Nonobstructive bowel pattern. No evidence for perforation or abscess. There is severe lower thoracic and lumbar spondylosis. IMPRESSION: 1. Acute uncomplicated diverticulitis. Reviewed, dictated and finalized at location L. CLUB WEIGHTER
== END 2023-01-24 15:23 | disposition home or self-care (01) ==
PROVIDERS: PCP Family Medicine Adolescent Medicine; Visit Provider Family Medicine Adolescent Medicine
DX: N20.1 Calculus of ureter (principal); K57.32 Diverticulitis of large intestine without perforation or abscess without bleeding
CPT/HCPCS: 74176

== ENCOUNTER 2023-03-22 13:37 | Outpatient (CLI) | payer MEDICARE, OTHER, SELFPAY ==
[2023-03-22 14:28] LABS: Influenza A QL RT-PCR Positive (Negative); Influenza B QL RT-PCR Negative (Negative); RSV RNA, RT-PCR Negative (Negative); SARS-CoV-2 RNA PCR Negative (Negative)
== END 2023-03-22 13:38 | disposition home or self-care (01) ==
LOC: ANHLAB 13:39
PROVIDERS: PCP Family Medicine Adolescent Medicine; Visit Provider Physician Assistant
DX: J45.21 Mild intermittent asthma with (acute) exacerbation (principal); Z20.822 Contact with and (suspected) exposure to COVID-19
CPT/HCPCS: 87637

== ENCOUNTER 2023-10-31 13:57 | Outpatient (CLI) | payer MEDICARE, OTHER, SELFPAY ==
--- NOTE | ~2023-10-31 | MM_ITS ---
EXAMINATION: MM screening [facility] BI w heather HISTORY: Screening TECHNIQUE: Craniocaudal and mediolateral oblique 3-D tomosynthesis images were obtained and synthetic 2-D images were generated. CAD analysis was submitted and interpreted. COMPARISON: Comparison to multiple prior studies sequentially, with oldest reviewed study dated 10/2016. BREAST PARENCHYMAL COMPOSITION: Not dense: There are scattered areas of fibroglandular density. FINDINGS: There is no evidence of suspicious mass, calcification, or architectural distortion to sugg est malignancy in either breast. There has been no suspicious interval change. IMPRESSION: 1. No mammographic evidence of malignancy. 2. Recommend routine screening mammography in one year. BI-RADS Category 1: Negative Reviewed, dictated and finalized at location B.
== END 2023-10-31 13:58 | disposition home or self-care (01) ==
LOC: MICIMG 13:58
PROVIDERS: PCP Obstetrics & Gynecology Gynecology; Visit Provider Family Medicine Adolescent Medicine
DX: Z12.31 Encounter for screening mammogram for malignant neoplasm of breast (principal)
CPT/HCPCS: 77063; 77067

== ENCOUNTER 2024-10-01 08:22 | Outpatient (CLI) | payer MEDICARE, OTHER, SELFPAY ==
--- OUTSIDE RECORDS SUMMARY | 2024-10-01 08:32 | XMS_ITS | Encounter Summary ---
Author Organization [facility] Address [address] [place] [address] Phone Care Team Providers Care Overlay Plastician Name Role Phone Zechariah Chang MD Primary Care Prov ider Jo Ann Espinoza RN Unavailable Janet vailable Reason for Visit * Reason Onset Date Comments Appointment 09/30/2024 Encounter Details Date Type Department Care Team (Late st Contact Info) Description 09/30/2024 Telephone [facility] Metabolic Weight Management [address] [facility] [address] Office [address], [address] [place] [address] Nicole Gómez RN [address] [place], [place] [id number] Appointment Social History Tobacco Use Types Packs/Day Years Used Date Smoking Tobacco: Never Smokeless Tobacco: Never Alcohol Use Standard Drinks/Week Comments Yes 0 (1 standard drink = 0.6 oz pur e alcohol) AUDIT-C Answer Date Recorded Q1: How often do you have a drink containing alc ohol? 2-3 times a week 02/13/2022 Average Number of Drinks Not on file 022 Frequency of Binge Drinking Not on file 01/26 PHQ-2 Answer Date Recorded PHQ-2 Total Score (If total score is 3 or more points, staff should administer the PHQ-9) 0 02/13/2022 Comments No Sex and Gender Information Value Date Recorded Sex Assigned at Not on file Legal Sex Female 6:51 AM PIN SETTER Gender Identity Not on file Sexual Orientation Straight 03/30/2021 4: 00 PM PIN SETTER documented as of this encounter Miscellaneous Notes * Telephone Encounter - Nicole Gómez RN - 09/30/2024 8:31 AM CDT Patient calling for directions to today's appointment. I informed her she does not have an appointment today. This was cancelled when she did not attend the initial visit. She has a video visit new 09-30-24 with Gloria. Make sure E check in is completed prior to the visit. documented in this encounter Plan of Treatment Not on file documented as of this encounter Visit Diagnoses Not on filedocumented in this encounter Care Teams Overlay Plastician Relationship Specialty Start Date End Date Zechariah Chang MD [address] [place] [address] PCP - General 02/01/17 Jo Ann Espinoza, RN Registered Nurse 06/03/17 documented as of this encounter
--- OUTSIDE RECORDS SUMMARY | 2024-10-01 08:32 | XMS_ITS | Clinical Summary ---
Author Organization [facility] Address [address] [place] [address] Care Team Providers Care Aws Software Development Engineer Name Role Phone Zechariah Chang MD Primary Care Prov ider Jo Ann Espinoza RN Unavailable Janet vailable Allergies Active Allergy Reactions Criticality Noted Date Comments Erythromycin Nausea & Vomiting Low 06/03/2017 Penicillins Nausea & Vomiting Low 06/03/2017 Medications albuterol HFA (PROVENTIL HFA,VENTOLIN HFA) 90 mcg/actuation inhaler Inhale 2 puffs. Acti ve budesonide-form oterol (SYMBICORT) 160-4.5 mcg/actuation inhaler Inhale 2 (two) times a day Active diclofenac DR (VOLTAREN) 75 mg EC tablet Take 75 mg by mouth 2 (two) times a day 8 Active ezetimibe (ZETIA) 10 mg tabletIndicatio ns:hypercholest erolemia Take 10 mg by mouth nightly 8 Active hydroCHLOROthia zide (HYDRODIURIL) 25 mg tablet Take 25 mg by mouth grinder set up operator gear tool before breakfast 8 Active lisinopril (PRINIVIL,ZESTR IL) 30 mg tabletIndicatio ns:hypertension Take 30 mg by mouth grinder set up operator gear tool before breakfast 8 Active busPIRone (BUSPAR) 15 mg tablet Take 15 mg by mouth 2 (two) times a day [address] (PROTONIX) 40 mg EC tablet Take 40 mg by mouth grinder set up operator gear tool before breakfast 1 Active rosuvastatin (CRESTOR) 40 mg tablet Take 40 mg by mouth grinder set up operator gear tool before breakfast 1 Active hydrOXYzine (ATARAX) 25 mg tabletIndicatio ns:anxiety Take 25 mg by mouth nightly 1 Active cholecalciferol (VITAMIN D-3) 2000 unit capsule Take 2,000 Units by mouth grinder set up operator gear tool before breakfast Active aspirin 81 mg enteric coated tabletIndicatio ns:prevention of thrombosis Take 81 mg by mouth grinder set up operator gear tool before breakfast Active oxyCODONE (ROXICODONE) 5 mg immediate release tabletIndicatio ns:Pain TAKE ONE TO TWO TABLETS EVERY 4 TO 6 HOURS PRN PAIN 40 tablet 1 Active amLODIPine (NORVASC) 5 mg tablet Take 5 mg by mouth daily 2 Active ALPRAZolam (XANAX) 0.25 mg tablet Take 1 tablet p.o. 1 hour prior to procedure. May take additional tablet 1/2 hour prior to procedure if needed. Do not drive remainder of day. 2 tablet 2 Active Additional Information Patient not taking.Reported on 02/13/2022 doxycycline (PERIOSTAT) 20 mg tablet Take 20 mg by mouth 2 (two) times a day Active Active Problems Problem Noted Date Diagnosed Date Encounter for weight management 08/26/2024 Class 3 drug-induced obesity with serious comorbidity and body mass index (BMI) of 40.0 to 44.9 in adult 08/26/2024 Coronary artery disease invo lving [place] coronary artery of [place] heart without angina pectoris 08/26/2024 Primary hypertension 08/26/2024 Mixed hyperlipidemia 08/26/2024 LARRY on CPAP 08/26/2024 COPD (chronic obstructive pulmonary disease) 03/2024 Myalgia 02/28/2022 Complete tear of left rotator cuff 09/01/2020 Overview (09/01/2020): Added automatically from request for surgery [id number] Chronic left-sided low back pain with left-sided sciatica 06/03/2017 Radiculopathy, lumbosacral region 06/03/2017 Spinal stenosis of lumbar re gion with neurogenic claudication 06/03/2017 Lumbosacral spondylosis without myelopathy 06/03 Encounters Date Type Department Care Team Description 09/30/2024 Telephone [facility] Metabolic Weight Management [address] [facility] Medical Office [address], [address] [place] [address] Nicole Gómez RN Appointment 09/29/2024 10:20 AM CDT Office Visit [facility] Orthopaedic Surgery [address] [facility] Medical Office [address] [place] [address] Lashae Jarrett MD Pain in left foot (Primary Dx); Posterior tibial tendon dysfunction (PTTD) of left lower extremity 09/02/2024 10:30 AM CDT Office Visit [facility] Orthopaedic Surgery [address] [facility] 1st Floor [address] [place] [address] Melonie Greene NP Acquired deformity of left ankle and foot (Primary Dx); Pain in left foot; Hallux valgus (acquired), left foot; Primary localized osteoarthrosis of left ankle and foot; Posterior tibial tendon dysfunction (PTTD) of left lower extremity 09/02/2024 10:20 AM CDT - 09/02/2024 11:59 PM CDT Hospital Encounter [facility] Radiology at [facility] [address] [place] [address] Pain in left foot Discharge Disposition: Discharge to home or self care from Last 3 Months Surgical History Surgery Date Site/Laterality Comments TONSILLECTOMY JOINT REPLACEMENT Bilateral KNEE SURGERY Bilateral x3 SECTION FINGER MASS EXCISION Left finger x2 FOOT SURGERY Left with hardware & revision with removal EYE SURGERY Bilateral lasik BREAST BIOPSY HEMORROIDECTOMY CYST REMOVAL uterus FLUORO GUIDED INJECTION SHOU LDER LEFT 03/21/2021 Left Medical History Medical History Date Comments Hypertension Hyperlipidemia PONV (postoperative nausea and vomiting) Motion sickness Carotid artery occlusion without infarction, gus ateral mild Depression Asthma COPD (chronic obstructive pulmonary disease) early stage Arthritis Acid reflux Anemia Family History Medical History Relation Name Comments Hypertension Father Diabetes Mother Hypertension Mother Anesthesia problems Neg Hx Relation Name Status Comments Father Mother Social History Tobacco Use Types Packs/Day Years Used Date Smoking Tobacco: Never Smokeless Tobacco: Never Tobacco Cessation:Counseling Given: Not Answered Alcohol Use Standard Drinks/Week Comments Yes 0 [...] on file Legal Sex Female 6:51 AM MANDOLIN REPAIRER Gender Identity Not on file Sexual Orientation Straight 03/30/2021 4: 00 PM MANDOLIN REPAIRER Obstetrics History Last Filed Vital Signs Vital Sign Reading Time Taken Comments Blood Pressure 145/91 02/28/2022 3:41 PM MANDOLIN REPAIRER Pulse 84 02/28/2022 3:41 PM MANDOLIN REPAIRER Temperature 36.5 C (97.7 F) 12/25/2021 9:06 AM CDT Respiratory Rate 17 02/28/2022 3:41 PM MANDOLIN REPAIRER Oxygen Saturation 98% 02/28/2022 3:41 PM MANDOLIN REPAIRER Inhaled Oxygen Concentration - - Weight 103 kg (227 lb) 09/29/2024 10:39 AM CDT Height 157.5 cm (5' 2) 09/29/2024 10:39 AM CDT Body Mass Index 41.52 09/29/2024 10:39 AM CDT Plan of Treatment Health Maintenance Due Date Last Done Comments Breast Cancer Screening-Mammogram 1955 Colon Cancer Screening-Colonoscopy 1955 Hepatitis C Screening 1955 Osteoporosis Screening-Bone Density Scan 1955 DTaP/Tdap/Td Vaccine (1 - Tdap) 08/23/1966 Hepatitis B Screening 08/23/1973 Pneumococcal vaccine 65+ (1 of 2 - PCV) 08/23/1974 Zoster Vaccine (1 of 2) 08/23/2005 Well Visit 65+ 08/23/2020 Depression Screening 02/13/2023 02/13/2022 Fall Risk Assessment 02/28/2023 02/28/2022 Influenza Vaccine (#1) 2024 04/20/2024 Medical Devices Implanted Type Area Production Sorter Device Identifier Shelf Expiration Date Model / Serial / Lot Jt Replacements Knee Bilateral: Knee [employer] Ar-1927bct Corkscrew Suturetape 5.5mm 14.7mm Bioabsorbable Full Thread 1.3mm - [id number] Implanted:Qty: 1 on 09/16/2020 by Miguel Angel Farias MD at [facility] Left: Shoulder [employer] 05/25/2022 AR-1927BCT / / [id number] [employer] Ar-1927bct Corkscrew Suturetape 5.5mm 14.7mm Bioabsorbable Full Thread 1.3mm - [id number] Implanted:Qty: 1 on 09/16/2020 by Miguel Angel Farias MD at [facility] Left: Shoulder [employer] 05/25/2022 AR-1927BCT / / [id number] [employer] Ar-1927bct Corkscrew Suturetape 5.5mm 14.7mm Bioabsorbable Full Thread 1.3mm - [id number] Implanted:Qty: 1 on 09/16/2020 by Miguel Angel Farias MD at [facility] Left: Shoulder [employer] 05/25/2022 AR-1927BCT / / [id number] [employer] Ar-2324 Bcm Swivelock 4.75mm 24.5mm Self Punch Vent Shoulder [place] Suture - [id number] Implanted:Qty: 1 on 09/16/2020 by Miguel Angel Farias MD at [facility] Left: Shoulder [employer] 05/25/2024 AR-2324BCM / / [id number] [employer] Ar-2324 Bcm Swivelock 4.75mm 24.5mm Self Punch Vent Shoulder [place] Suture - [id number] Implanted:Qty: 1 on 09/16/2020 by Miguel Angel Farias MD at [facility] Left: Shoulder [employer] 05/25/2024 AR-2324BCM / / [id number] Procedures Procedure Name Priority Date/Time Associated Diagnosis Comments XR FOOT LEFT 3 OR MORE VIEWS Schedule Routine, Read Routine (OP Routine) 09/02/2024 10:26 AM CDT Pain in left foot XR ANKLE LEFT 2 VIEWS Schedule Routine, Read Routine (OP Routine) 09/02/2024 10:26 AM CDT Pain in left foot from Last 3 Months Results * XR Foot Left 3+ View (09/02/2024 10:26 AM CDT) Anatomical Region Laterality Modality Lower Extremities, Foot Left Computed Radiography 09/02/2024 12:1 3 PM CDT Impressions 09/02/2024 12:45 PM CDT 1. Polyarticular mild to moderate osteoarthritis, greatest at the 1st metatarsal phalangeal joint. 2. No fracture. Dictated by: Kaden Styles MD The radiology attending physician has personally reviewed this study, and had reviewed and/or edited this written report and agrees with it. Electronically signed by: Henri London M.D. Narrative 09/02/2024 12:45 PM CDT EXAMINATION: XR ANKLE LEFT 2 VIEWS, XR FOOT LEFT 3 OR MORE VIEWS HISTORY: Left ankle pain COMPARISON: None. FINDINGS: Left ankle: Mild tibiotalar osteoarthritis. Ankle mortise is intact. There is no acute fracture. Left foot: Postoperative as well as moderate to severe 1st metatarsophalangeal joint osteoarthritis. There is pes planus and hallux valgus. Small plantar calcaneal spur. Polyarticular midfoot osteoarthritis. Greatest and moderate at the tarsometatarsal joints and 1st metatarsophalangeal joint. Procedure Note Henri London MD - 09/02/2024 EXAMINATION: XR ANKLE LEFT 2 VIEWS, XR FOOT LEFT 3 OR MORE VIEWS HISTORY: Left ankle pain COMPARISON: None. FINDINGS: Left ankle: Mild tibiotalar osteoarthritis. Ankle mortise is intact. There is no acute fracture. Left foot: Postoperative as well as moderate to severe 1st metatarsophalangeal joint osteoarthritis. There is pes planus and hallux valgus. Small plantar calcaneal spur. Polyarticular midfoot osteoarthritis. Greatest and moderate at the tarsometatarsal joints and 1st metatarsophalangeal joint. IMPRESSION: 1. Polyarticular mild to moderate osteoarthritis, greatest at the 1st metatarsal phalangeal joint. 2. No fracture. Dictated by: Kaden Styles MD The radiology attending physician has personally reviewed this study, and had reviewed and/or edited this written report and agrees with it. Electronically signed by: Henri London M.D. Melonie Greene YARD DEMURRAGE CLERK IMG XR PROCEDURES Final Result * XR Ankle Left 2 Views (09/02/2024 10:26 AM CDT) Anatomical Region Laterality Modality Lower Extremities, Ankle Left Compute d Radiography 09/02/2024 12:1 3 PM CDT Impressions 09/02/2024 12:45 PM CDT 1. Polyarticular mild to moderate osteoarthritis, greatest at the 1st metatarsal phalangeal joint. 2. No fracture. Dictated by: Kaden Styles MD The radiology attending physician has personally reviewed this study, and had reviewed and/or edited this written report and agrees with it. Electronically signed by: Henri London M.D. Narrative 09/02/2024 12:45 PM CDT EXAMINATION: XR ANKLE LEFT 2 VIEWS, XR FOOT LEFT 3 OR MORE VIEWS HISTORY: Left ankle pain COMPARISON: None. FINDINGS: Left ankle: Mild tibiotalar osteoarthritis. Ankle mortise is intact. There is no acute fracture. Left foot: Postoperative as well as moderate to severe 1st metatarsophalangeal joint osteoarthritis. There is pes planus and hallux valgus. Small plantar calcaneal spur. Polyarticular midfoot osteoarthritis. Greatest and moderate at the tarsometatarsal joints and 1st metatarsophalangeal joint. Procedure Note Henri London MD - 09/02/2024 EXAMINATION: XR ANKLE LEFT 2 VIEWS, XR FOOT LEFT 3 OR MORE VIEWS HISTORY: Left ankle pain COMPARISON: None. FINDINGS: Left ankle: Mild tibiotalar osteoarthritis. Ankle mortise is intact. There is no acute fracture. Left foot: Postoperative as well as moderate to severe 1st metatarsophalangeal joint osteoarthritis. There is pes planus and hallux valgus. Small plantar calcaneal spur. Polyarticular midfoot osteoarthritis. Greatest and moderate at the tarsometatarsal joints and 1st metatarsophalangeal joint. IMPRESSION: 1. Polyarticular mild to moderate osteoarthritis, greatest at the 1st metatarsal phalangeal joint. 2. No fracture. Dictated by: Kaden Styles MD The radiology attending physician has personally reviewed this study, and had reviewed and/or edited this written report and agrees with it. Electronically signed by: Henri Lonodn M.D. Melonie Ramona [place] IMG XR PROCEDURES Final Result from Last 3 Months Insurance [place] [address] MEDICARE [place]IC[place] Care Teams Aws Software Development Engineer Relationship Specialty Start Date End Date Zechariah Chang MD [address] [place] [id number] PCP - General 02/01/17 Jo Ann Espinoza, RN Registered Nurse 06/03/17
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
--- OUTSIDE RECORDS SUMMARY | 2024-10-01 08:32 | XMS_ITS | Patient Health Record ---
Author Organization [facility] Address [address] [place], [place] [id number] Care Team Providers Care Surveillance Camera Technician Name Role Phone DMOINIC Lora Unavailable Zechariah Chang Unavailable Unavailable Reason For Referral No Information Plan Of Treatment No Information Insurance Providers Payer Name Payer Address Payer Phone Subscriber Number Group Number Insured Name Patient Relationship to Insured Coverage Start Date Coverage End Date [facility] [address] [address] [place] [address] [id number] KAY BRUMFIELD Self - patient is the insured
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
== END 2024-10-01 08:23 | disposition home or self-care (01) ==
LOC: ANHNEURO 08:24
PROVIDERS: PCP Nurse Practitioner Family; Visit Provider Psychiatry & Neurology Neurology
DX: E11.9 Type 2 diabetes mellitus without complications (principal); G62.9 Polyneuropathy, unspecified
CPT/HCPCS: 95886; 95910

== ENCOUNTER 2024-10-28 12:05 | Emergency (ER) | payer MEDICARE, OTHER, SELFPAY ==
--- NOTE | ~2024-10-28 | XR_ITS ---
EXAM/ PROCEDURE: XR foot RT min 3V - 10/28/2024 12:26 CDT HISTORY: 69 years old Female with injury COMPARISON: None available TECHNIQUE: Four view(s) FINDINGS/ IMPRESSION: There are no fractures or dislocations.Joint space narrowing, subchondral sclerosis, subchondral cyst formation and osteophyte formation, compatible with mild osteoarthritis. Reviewed, dictated and finalized at location N.
[2024-10-28 12:15] VITALS: BP 200/104; PULSE 63; RESP 18; TEMP 36.6; O2SAT 98
--- NOTE | 2024-10-28 13:07 | ED.LOWEXIN ---
HPI - Extremity Injury (Lower) General Chief Complaint: Extremity Injury, Lower Stated Complaint: R foot injury Time Seen by Provider: 10/28/24 12:12 Source: patient Mode of arrival: wheelchair Limitations: no limitations History of Present Illness HPI Narrative: This is a 69 year old female that presents to the ER for right foot injury. Sustained this morning. Reports she twisted/hit the foot on her shower chair. Reports pain with weight bearing. Denies decreased ROM or numbness. Related Data Home Medications ?Medication ?Instructions ?Recorded ?Confirmed ?Last Taken ?Type aspirin 81 mg tablet,delayed 81 mg PO DAILY 04/19/21 09/21/24 Unknown History release multivitamin (Daily Multi-Vitamin 1 tablet PO DAILY 12/26/21 09/21/24 Unknown History tablet) budesonide-formoterol HFA 160 2 puff inhalation Q12H 07/19/22 09/21/24 Unknown History mcg-4.5 mcg/actuation aerosol inhaler (Symbicort) clopidogrel 75 mg tablet 75 mg PO DAILY 04/24/24 09/21/24 Unknown History Allergies Allergy/AdvReac Type Severity Reaction Status Date / Time erythromycin base Allergy Unknown upset Verified 10/28/24 12:21 stomach Penicillins Allergy Unknown Upset Verified 10/28/24 12:21 stomach doxycycline Allergy Vomiting Verified 10/28/24 12:21 Review of Systems Review of Systems: All systems reviewed & are unremarkable except as noted in HPI and below PMFSH Past Medical History Medical History Body mass index (BMI) of 40.1 to 44.9 in adult Obstructive sleep apnea syndrome in adult Pain in left knee Rheumatoid arthritis Valgus deformity, not elsewhere classified, left ankle Peripheral neuropathy Ataxia Counseling on health promotion and disease prevention Encounter for medication management 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 Low back pain, unspecified Diastolic dysfunction (07/2021) Essential (primary) hypertension Carotid stenosis, bilateral Pure hypercholesterolemia, unspecified Major depressive disorder, recurrent, moderate Surgical History Surgical History History of coronary angioplasty with insertion of stent 04/18/24 diagonal artery Hx of rotator cuff surgery left 09/14 Hx of adenoidectomy Hx of tonsillectomy Family History Family History Father Lung cancer Family history of arthritis Hypertension Mother Diabetes mellitus Family history of arthritis Heart disease Grandparent Family history of arthritis Social History Social History Smoking status: Never smoker Second hand tobacco smoke exposure: Yes Alcohol intake: current Drinks per week: 3 Substance use: current Substance use type: does not use Do You Feel Safe in your Home?: Yes Lack of Transportation: No Lack of Food: Never True Current Housing: I Have Housing Concerned About Future Housing: No Difficulty Paying Gas/Electric Bills: No Difficulty Paying for Meds: No Currently Unemployed: No Education: Bachelor's Degree Difficulty w/ Childcare or Family Care: No Living arrangements: alone Occupation/Education: retired 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 HEAD: Normocephalic, atraumatic. EYES: EOMI. EXTREMITIES: Normal range of motion. No edema or obvious deformity. Normal DP pulse. Normal sensation SKIN: Warm, dry, no rash. NEURO: No focal deficits. Alert and oriented x3. PSYCH: Normal mood and affect Course Vital Signs Vital signs: Vital Signs Temperature 97.9 F 10/28/24 12:15 Pulse Rate 63 10/28/24 12:15 Respiratory Rate 18 10/28/24 12:15 Blood Pressure 200/104 H 10/28/24 12:15 Pulse Oximetry 98 10/28/24 12:15 Oxygen Delivery Room Air 10/28/24 12:15 Temperature 97.9 F 10/28/24 12:15 Pulse Rate 63 10/28/24 12:15 Respiratory Rate 18 10/28/24 12:15 Blood Pressure 200/104 H 10/28/24 12:15 Pulse Oximetry 98 10/28/24 12:15 Oxygen Delivery Room Air 10/28/24 12:15 MDM - Extremity Injury (Lower) MDM Narrative Medical decision making narrative: Patient presents to the emergency department after injury this morning with right foot pain. She is neurovascularly intact. Right foot x-ray without acute osseous abnormalities. Patient given postop shoe, reports she has a walker at home. Instructed on further care of foot sprain. She is to follow up with her orthopedics doctor. She was given warnings to return to the ER Differential Diagnosis Differential diagnosis: Likely ankle sprain and strain, ankle fracture and other (foot fracture, foot sprain) Imaging Data Radiologist's impression: HISTORY: 69 years old Female with injury COMPARISON: None available TECHNIQUE: Four view(s) FINDINGS/ IMPRESSION: There are no fractures or dislocations.Joint space narrowing, subchondral sclerosis, subchondral cyst formation and osteophyte formation, compatible with mild osteoarthritis. Critical Care Time Critical Care Time Critical Care Time: No Discharge Plan Discharge Clinical Impression: Right foot sprain Qualifiers: Encounter type: initial encounter Qualified Code(s): S93.601A - Unspecified sprain of right foot, initial encounter Patient Disposition: Home Condition: Stable Instructions: Foot Sprain (ED) Additional Instructions: Return to the ER if you experience fever, redness and swelling of your extremity, numbness or any other symptoms that are concerning to you Wear NAYELI wrap and use walker. No weight on the affected leg until able to bear weight without pain. Ice and elevate extremity. Pain medication as needed and directed. Follow up with your orthopedics doctor for further care. Patient Language: Iraqi Prescriptions: No Action multivitamin [Daily Multi-Vitamin] Tablet 1 tablet PO DAILY Repatha SureClick 140 mg/mL pen injector 140 mg subcut .every 2 weeks Qty: 2 11RF albuterol sulfate 2.5 mg /3 mL (0.083 %) solution for nebulization 2.5 mg inhalation Q4-6H PRN (Reason: shortness of breath or wheezing) Qty: 180 3RF clopidogrel 75 mg tablet 75 mg PO DAILY aspirin 81 mg tablet,delayed release (DR/EC) 81 mg PO DAILY cholecalciferol (vitamin D3) [Vitamin D3] 25 mcg (1,000 unit) tablet 25 mcg PO DAILY Qty: 30 0RF rosuvastatin 40 mg tablet 40 mg PO DAILY Qty: 90 0RF oxycodone 5 mg tablet 5 mg PO Q6HR PRN (Reason: Pain Rated 7-10) Qty: 25 0RF fenofibrate 160 mg tablet See Rx Instructions .ROUTE .COMPLEX Qty: 30 5RF Dose Instruction: Take 1 tablet by mouth once daily Rx Instructions: Take 1 tablet by mouth once daily albuterol sulfate 90 mcg/actuation HFA aerosol inhaler See Rx Instructions .ROUTE .COMPLEX Qty: 54 0RF Dose Instruction: INHALE 1 TO 2 PUFFS BY MOUTH EVERY 4 HOURS NEEDED FOR SHORTNESS OF BREATH FOR WHEEZING Rx Instructions: INHALE 1 TO 2 PUFFS BY MOUTH EVERY 4 HOURS NEEDED FOR SHORTNESS OF BREATH FOR WHEEZING ezetimibe 10 mg tablet See Rx Instructions .ROUTE .COMPLEX Qty: 90 2RF Dose Instruction: Take 1 tablet by mouth once daily Rx Instructions: Take 1 tablet by mouth once daily bupropion HCl 300 mg tablet extended release 24 hr See Rx Instructions .ROUTE .COMPLEX Qty: 90 3RF Dose Instruction: TAKE 1 TABLET BY MOUTH IN THE MORNING Rx Instructions: TAKE 1 TABLET BY MOUTH IN THE MORNING nitroglycerin 0.4 mg tablet, sublingual 0.4 mg sublingual Q5M PRN (Reason: chest pain) Qty: 20 0RF Rx Instructions: do not exceed 3 doses per episode Sunosi 75 mg tablet 75 mg PO DAILY Qty: 30 0RF Rx Instructions: 1/2 tab daily x 3 days then can increase to full tablet if tolerable and desired. montelukast 10 mg tablet 10 mg PO QHS Qty: 90 3RF carvedilol 12.5 mg tablet 12.5 mg PO Q12H Qty: 180 0RF Rx Instructions: must administer with a meal/food lisinopril 40 mg tablet 40 mg PO DAILY Qty: 90 3RF pantoprazole 40 mg tablet,delayed release (DR/EC) See Rx Instructions .ROUTE .COMPLEX Qty: 180 1RF Dose Instruction: Take 1 tablet by mouth twice daily Rx Instructions: Take 1 tablet by mouth twice daily budesonide-formoterol [Symbicort] 160-4.5 mcg/actuation Hfa Aerosol Inhaler 2 puff INHALATION Q12H Follow-up/Referrals: Ana Cox APRN [Primary Care Provider, Family Practice]
[2024-10-28 13:35] VITALS: BP 177/96; PULSE 64; RESP 15; O2SAT 98
--- OUTSIDE RECORDS SUMMARY | 2024-10-28 13:38 | XMS_ITS | Clinical Summary ---
Author Organization [facility] Address [address] [place] [address] Care Team Providers Care Direct Selling Counselor Name Role Phone Zechariah Chang MD Primary Care Prov ider Jo Ann Espinoza RN Unavailable Janet vailable Allergies Active Allergy Reactions Criticality Noted Date Comments Erythromycin Nausea & Vomiting Low 06/03/2017 Penicillins Nausea & Vomiting Low 06/03/2017 Medications albuterol HFA (PROVENTIL HFA,VENTOLIN HFA) 90 mcg/actuation inhaler Inhale 2 puffs. Active budesonide-for moterol (SYMBICORT) 160-4.5 mcg/actuation inhaler Inhale 2 (two) times a day Active ezetimibe (ZETIA) 10 mg tabletIndicati ons:hyperchole sterolemia Take 10 mg by mouth nightly 8 Active lisinopril (PRINIVIL,ZEST RIL) 30 mg tabletIndicati ons:hypertensi on Take 30 mg by mouth numerical control nesting operator before breakfast [address] (PROTONIX) 40 mg EC tablet Take 40 mg by mouth numerical control nesting operator before breakfast 1 Active rosuvastatin (CRESTOR) 40 mg tablet Take 40 mg by mouth numerical control nesting operator before breakfast 1 Active cholecalcifero l (VITAMIN D-3) 2000 unit capsule Take 2,000 Units by mouth numerical control nesting operator before breakfast Active aspirin 81 mg enteric coated tabletIndicati ons:prevention of thrombosis Take 81 mg by mouth numerical control nesting operator before breakfast Active oxyCODONE (ROXICODONE) 5 mg immediate release tabletIndicati ons:Pain TAKE ONE TO TWO TABLETS EVERY 4 TO 6 HOURS PRN PAIN 40 tablet 1 Active semaglutide (WEGOVY) 0.5 mg/0.5 mL auto-injector Inject 0.5 mg under the skin every 7 days 2 mL [address] (VOLTAREN) 75 mg EC tablet Take 75 mg by mouth 2 (two) times a day 8 10/03/19 25 Discontinu ed(Patient Reported) hydroCHLOROthi azide (HYDRODIURIL) 25 mg tablet Take 25 mg by mouth numerical control nesting operator before breakfast 8 10/03/19 25 Discontinu ed(Patient Reported) busPIRone (BUSPAR) 15 mg tablet Take 15 mg by mouth 2 (two) times a day 1 10/03/19 25 Discontinu ed(Patient Reported) hydrOXYzine (ATARAX) 25 mg tabletIndicati ons:anxiety Take 25 mg by mouth nightly 1 10/03/19 25 Discontinu ed(Patient Reported) amLODIPine (NORVASC) 5 mg tablet Take 5 mg by mouth daily 2 10/03/19 25 Discontinu ed(Alterna te therapy) ALPRAZolam (XANAX) 0.25 mg tablet Take 1 tablet p.o. 1 hour prior to procedure. May take additional tablet 1/2 hour prior to procedure if needed. Do not drive remainder of day. 2 tablet 2 10/03/19 25 Discontinu ed(Patient Reported) doxycycline (PERIOSTAT) 20 mg tablet Take 20 mg by mouth 2 (two) times a day 10/03/19 25 Discontinu ed(Patient Reported) Active Problems Problem Noted Date Diagnosed Date Encounter for weight management 08/26/2024 Assessment & Plan (10/02/2024 3:37 PM CDT): Thank you for joining your new patient appointment today. It was a pleasure to meet with you. Please read the following information today to make sure you have everything prepared for your next appointment. YOU WILL NEED TO CALL THE SCHEDULING DEPARTMENT TODAY AT [phone], OPTION 1, TO SCHEDULE A FOLLOWUP APPOINTMENT IN THE NEXT 6 WEEKS. The goal of weight management is to achieve 10-15% weight loss in the next 6-12 months to decrease your risk of developing obesity related diseases (by attaining improved metabolic health). To be successful in managing weight, we must understand that the problem is based on many factors including fat cell dysfunction. Recognizing obesity as a chronic disease, which needs to be managed in [facility] just like any other chronic illnesses, is crucial. The weight gain will recur if you stop treating the disease. Currently, anti obesity medications are recommended for parts counterman use just like any other medications to control chronic illnesses. Frequent monitoring and adjusting of the medications are also very important, so it is important to make and keep follow up appointments as scheduled. Before your next appointment, please complete the following tests: Abdominal ultrasound. For the ultrasound: [facility] Radiology Scheduling . Get directions to our Imaging Locations. We have a variety of medications that are effective for weight loss other than the newer injections; if your insurance does not cover the injections, we will still be able to discuss other medications for success. General dietary guidelines: Track your daily intake every day until your next appointment. This can be on paper or in an karolina like [employer], [employer], or similar programs. Avoid ultra-processed foods as much as possible. This includes fast food, pre-packaged meals, and most snacks like chips or candy. It can be hard to control your food when going out to eat, so try incorporating more meals at home, including meal planning and prepping. Focus on lean sources of protein, like chicken, fish, lean pork, eggs, and low- fat yogurt or cottage cheese, as well as beans. Eat a variety of fruits and vegetables, focusing on lower carb vegetables like leafy greens, celery, tomatoes, broccoli, cauliflower, asparagus, mushrooms, and zucchini. Drink at least 80 ounces of water daily. Avoid sweetened beverages like soda and juice. Limit artificially sweetened beverages and caffeine. Limit carbohydrate intake to less than 150 grams per day. General exercise guidelines: Aim for at least 30 minutes of cardio exercise every day. This can include walking, running, biking, swimming, or aerobics classes. It does not have to be done all at one time; you can break it into 10 or 15 minute intervals, done two or three times throughout the day. If 10 to 15 minutes is too much, start with 2-5 minutes at a time and work up on the time as you can. Try to incorporate resistance training or weight lifting 2-3 times weekly. This can include body weight exercises (push ups, pull ups, squats, lunges, and sit-ups/crunches), or you can use light dumbbells or resistance bands. General sleep guidelines: Try to get 7-8 hours of sleep at night. If you have sleep apnea, you should wear the CPAP nightly. General stress management guidelines: Try meditation to balance and reintegrate both sides of brain. Apps for meditation include Headspace and Calm. Other resources include Zion Evans Series 1 & 2, Imagine Clarity. The [facility] at the [facility] conducts a wide array of clinical studies evaluating approaches to diet, nutrition and disease prevention. We are currently recruiting subjects for multiple clinical trials. If you are interested please call [phone]. [facility] Daily Food Intake: 50% Fruits and Category 1 Vegetables 30% Grains, Legumes, and Category 2 Vegetables 20% Proteins FRUITS serving size as indicated, approx 80 calories Apple- 1 medium Apricots- 3 medium Figs- 2 Grapefruit- 1 Cantaloupe- cup Cherries- 15 Kevin- medium Berries (blackberries, strawberries, blueberries, raspberries)- 1 and cup Grapes- 15 Honeydew- small Ballard- 2 small Nectarine- 2 small Gresham- 1 large Watermelon- 2 cups Letts- 2 small Tangerines- 2 small Pear- 1 medium CATEGORY 1 VEGETABLES unlimited servings, approx 10-25 calories per cup Artichokes Asparagus Bamboo Shoots Flores Sprouts Bok Joya Broccoli Brussel Sprouts Cabbage Cauliflower Celery Chives Joo Greens Verdi Dandelion Greens Pickles Eggplant Escarole Mustard Greens Green Beans Garlic Leeks Lettuce Mushrooms Okra Onion (all) Peppers (east) Radishes Salsa Watercress Zucchini GRAINS serving size cup cooked, or as indicated, approx 75-100 calories Amaranth Basmati Rice Brown Rice Wild Rice Barley Buckwheat Quinoa Teff Grots Millet Bulgar Whole Oats oatmeal (? c cooked) Pasta- whole wheat, spelt, or kamut. Whole grain bread Whole wheat keven Whole grain rye crackers (3) whole wheat tortilla Low carb tortilla CATEGORY 2 VEGETABLES serving size cup , approx 45 calories Beets Grand Tower Squash [place] Squash Carrots- c cook, 2 med, 12 baby Sweet potato ( medium) Yams ( medium) Virgin Isl Gold Potato ( medium) LEGUMES serving size cup, approx 110 calories Split Peas Sweet Green Beans Fat free refried beans Green soy beans Hummus Beans- Black, Cannellini, Garbanzo, Kidney, Tyler, Mung, Lodgepole, Ocampo. Lentils PROTEIN serving size 5-6 oz cooked, or as indicated Meat, poultry, and fish should be grilled, baked, or roasted. Fish can be poached. Keep cheese intake low due to saturated fat content. Eggs (2 whole, 3 whites plus 1, ? cup substitute) Fish and Shellfish: 3 oz fresh or cup canned in water Poultry (chicken, turkey, noe hen): breast only Leg of [place] Beef: very lean Tofu/Tempeh: 8 oz or 1 cup fresh, 3.5 ounces cubed Veggie Burger: 4 ounce Cheese: Cottage (low fat cup), Ricotta ( cup), Mozzarella (2 oz or c shredded), Parmesan Nuts and Seeds approx 100 calories per serving Almonds (10-12) Hazelnuts (10-12) Walnuts halves (2 T) Pecan halves (2 T) Peanuts (7-8) Pistachios (2 T) Everett seeds (2T) Pumpkin Seeds (2T) Sesame Seeds (2 T) Nut butter made from above nuts (1 T) OILS- should be cold pressed serving size 1 teaspoon approx 40 calories Avocado Flaxseed [place] Canola Extra [place] Slaton Olives- 8-10 medium Martinez (from canola oil) DAIRY serving size: 6 oz or as indicated approx 80 calories Buttermilk Fat free Yogurt Plain low fat Yogurt (4 oz) Milk (nonfat or 2%) Soy Milk BEVERAGES unlimited Coffee- decaffeinated Herbal tea- decaffeinated Green tea- decaffeinated Water: plain, seltzer, or flavored seltzer CONDIMENTS unlimited Cinnamon Lemon [place] Mustard Tamari soy sauce Vinegar Stevia other herbs/spices Extracts (vanilla, almond, etc) [facility] Daily Food Intake: 50% Fruits and Category 1 Vegetables 30% Grains, Legumes, and Category 2 Vegetables 20% Proteins FRUITS serving size as indicated, approx 80 calories Apple- 1 medium Apricots- 3 medium Figs- 2 Grapefruit- 1 Cantaloupe- cup Cherries- 15 Kevin- medium Berries (blackberries, strawberries, blueberries, raspberries)- 1 and cup Grapes- 15 Honeydew- small Ballard- 2 small Nectarine- 2 small Gresham- 1 large Watermelon- 2 cups Letts- 2 small Tangerines- 2 small Pear- 1 medium CATEGORY 1 VEGETABLES unlimited servings, approx 10-25 calories per cup Artichokes Asparagus Bamboo Shoots Flores Sprouts Bok Joya Broccoli Brussel Sprouts Cabbage Cauliflower Celery Chives Joo Greens Verdi Dandelion Greens Pickles Eggplant Escarole Mustard Greens Green Beans Garlic Leeks Lettuce Mushrooms Okra Onion (all) Peppers (east) Radishes Salsa Watercress Zucchini GRAINS serving size cup cooked, or as indicated, approx 75-100 calories Amaranth Basmati Rice Brown Rice Wild Rice Barley Buckwheat Quinoa Teff Grots Millet Bulgar Whole Oats oatmeal (? c cooked) Pasta- whole wheat, spelt, or kamut. Whole grain bread Whole wheat keven Whole grain rye crackers (3) whole wheat tortilla Low carb tortilla CATEGORY 2 VEGETABLES serving size cup , approx 45 calories Beets Grand Tower Squash [place] Squash Carrots- c cook, 2 med, 12 baby Sweet potato ( medium) Yams ( medium) Virgin Isl Gold Potato ( medium) LEGUMES serving size cup, approx 110 calories Split Peas Sweet Green Beans Fat free refried beans Green soy beans Hummus Beans- Black, Cannellini, Garbanzo, Kidney, Tyler, Mung, Lodgepole, Ocampo. Lentils PROTEIN serving size 5-6 oz cooked, or as indicated Meat, poultry, and fish should be grilled, baked, or roasted. Fish can be poached. Keep cheese intake low due to saturated fat content. Eggs (2 whole, 3 whites plus 1, ? cup substitute) Fish and Shellfish: 3 oz fresh or cup canned in water Poultry (chicken, turkey, noe hen): breast only Leg of [place] Beef: very lean Tofu/Tempeh: 8 oz or 1 cup fresh, 3.5 ounces cubed Veggie Burger: 4 ounce Cheese: Cottage (low fat cup), Ricotta ( cup), Mozzarella (2 oz or c shredded), Parmesan Nuts and Seeds approx 100 calories per serving Almonds (10-12) Hazelnuts (10-12) Walnuts halves (2 T) Pecan halves (2 T) Peanuts (7-8) Pistachios (2 T) Everett seeds (2T) Pumpkin Seeds (2T) Sesame Seeds (2 T) Nut butter made from above nuts (1 T) OILS- should be cold pressed serving size 1 teaspoon approx 40 calories Avocado Flaxseed [place] Canola Extra [place] Slaton Olives- 8-10 medium Martinez (from canola oil) DAIRY serving size: 6 oz or as indicated approx 80 calories Buttermilk Fat free Yogurt Plain low fat Yogurt (4 oz) Milk (nonfat or 2%) Soy Milk BEVERAGES unlimited Coffee- decaffeinated Herbal tea- decaffeinated Green tea- decaffeinated Water: plain, seltzer, or flavored seltzer CONDIMENTS unlimited Cinnamon Lemon [place] Mustard Tamari soy sauce Vinegar Stevia other herbs/spices Extracts (vanilla, almond, etc) [facility] Ultra-Processed Food Group Examples of Foods Beverages Sugary Drinks (Regular sodas, sugary fruit-based beverages, industrial chocolate powder beverages, energy drinks, flavored liang); Artificially sweetened Beverages (diet sodas, artificially sweetened iced tea) Dairy Products Flavored or artificially sweetened yogurt products such as dairy desserts, cream cheese, milkshakes, dairy beverages, flavored milk with one or more texturizer, emulsifier, colorant, or other cosmetic additives. Fats and Sauces Sauces and dressing (Salad dressing, mayonnaise, ketchup, b chamel, and other dressings) containing emulsifiers, texturizers, flavor enhancers, or additives. Fruits and Vegetable Instant powder soups, reconstructed vegetarian/soy steaks with additives, flavored and artificially sweetened fruit compotes, vegan nuggets. Meat, Fish, and Eggs Processed meat with added nitrites, chicken nuggets, fish sticks, industrial C ordon Abhijit chicken with wheat dextrose, emulsifier preservatives, surimi-carb sticks. Starchy Food and Cereals Flavored breakfast cereals with added emulsifiers texturizing agents and/or colorants, industrial pre-baked breads and buns with added dextrose preservatives and emulsifiers. Sugary Products Industrially packed cookies, cakes, chocolate/wafer bars, candies manufactured with glucose syrup, modified starch, hydrogenated oils, colors or flavors. Salty Snacks Chips, Crisps, and crackers made with other ingredients than potatoes, oil, and salt such as malt dextrin, flavors, dyes, emulsifiers, or flavor enhancers. Class 3 drug-induced obesity with serious comorbidity and body mass index (BMI) of 40.0 to 44.9 in adult 08/26/2024 Assessment & Plan (10/02/2024 1:04 PM CDT): Initial BMI 41. Coronary artery disease invo lving [place] coronary artery of [place] heart without angina pectoris 08/26/2024 Primary hypertension 08/26/2024 Mixed hyperlipidemia 08/26/2024 LARRY on CPAP 08/26/2024 Assessment & Plan (10/02/2024 1:04 PM CDT): Continue current CPAP use Discussed role of weight loss in improving LARRY sx. COPD (chronic obstructive pulmonary disease) 03/2024 Myalgia 02/28/2022 Complete tear of left rotator cuff 09/01/2020 Overview (09/01/2020): Added automatically from request for surgery [id number] Chronic left-sided low back pain with left-sided sciatica 06/03/2017 Radiculopathy, lumbosacral region 06/03/2017 Spinal stenosis of lumbar re gion with neurogenic claudication 06/03/2017 Lumbosacral spondylosis without myelopathy 06/03 Encounters Date Type Department Care Team Description 10/02/2024 3:00 PM CDT Telemedicine [facility] Metabolic Weight Management [address] [place] [address] [address] [place] [id number] Gloria Becerra PA Encounter for weight management (Primary Dx); Class 3 drug-induced obesity with serious comorbidity and body mass index (BMI) of 40.0 to 44.9 in adult (HCC); LARRY on CPAP 09/30/2024 Telephone [facility] Weight Management [address] [place] [address] Office [facility] [address] [place] [id number] Nicole Gómez RN Appointment 09/29/2024 10:20 AM CDT Office Visit [facility] Orthopaedic Surgery [address] [facility] [address] [place] [id number] Lashae Jarrett MD Pain in left foot (Primary Dx); Posterior tibial tendon dysfunction (PTTD) of left lower extremity 09/02/2024 10:30 AM CDT Office Visit [facility] Orthopaedic Surgery [address] [facility] 1st [address] [place] [address] Melonie Greene NP Acquired deformity of left ankle and foot (Primary Dx); Pain in left foot; Hallux valgus (acquired), left foot; Primary localized osteoarthrosis of left ankle and foot; Posterior tibial tendon dysfunction (PTTD) of left lower extremity 09/02/2024 10:20 AM CDT - 09/02/2024 11:59 PM CDT Hospital Encounter [facility] Radiology at [facility] [address] [place] [address] Pain in left foot Discharge Disposition: Discharge [...] on file Legal Sex Female 6:51 AM INTERNATIONAL SPECIALIST Gender Identity Not on file Sexual Orientation Straight 03/30/2021 4: 00 PM INTERNATIONAL SPECIALIST Obstetrics History Last Filed Vital Signs Vital Sign Reading Time Taken Comments Blood Pressure 145/91 02/28/2022 3:41 PM INTERNATIONAL SPECIALIST Pulse 84 02/28/2022 3:41 PM INTERNATIONAL SPECIALIST Temperature 36.5 C (97.7 F) 12/25/2021 9:06 AM CDT Respiratory Rate 17 02/28/2022 3:41 PM INTERNATIONAL SPECIALIST Oxygen Saturation 98% 02/28/2022 3:41 PM INTERNATIONAL SPECIALIST Inhaled Oxygen Concentration - - Weight 103.4 kg (228 lb) 10/02/2024 2:59 PM CDT home weight Height 157.5 cm (5' 2) 10/02/2024 2:59 PM CDT Body Mass Index 41.7 10/02/2024 2:59 PM CDT Plan of Treatment Health Maintenance Due [...] 2024 04/20/2024 Medical Devices Implanted Type Area Sap Portal Consultant Device Identifier Shelf Expiration Date Model / Serial / Lot Jt Replacements Knee Bilateral: Knee [employer] Ar-1927bct Corkscrew Suturetape 5.5mm 14.7mm Bioabsorbable Full Thread 1.3mm - [id number] Implanted:Qty: 1 on 09/16/2020 by Miguel Angel Farias MD at [facility] Left: Shoulder [employer] 05/25/2022 AR-1927BCT / / [id number] [employer] Ar-1927bct Corkscrew Suturetape 5.5mm 14.7mm Bioabsorbable Full Thread 1.3mm - [id number] Implanted:Qty: 1 on 09/16/2020 by Miguel Angel Farias MD at [facility] Left: Shoulder [employer] 05/25/2022 AR-1927BCT / / [id number] [employer] Ar-1927bct Corkscrew Suturetape 5.5mm 14.7mm Bioabsorbable Full Thread 1.3mm - [id number] Implanted:Qty: 1 on 09/16/2020 by Miguel Angel Farias MD at [facility] Left: Shoulder [employer] 05/25/2022 AR-1927BCT / / [id number] [employer] Ar-2324 Bcm Swivelock 4.75mm 24.5mm Self Punch Vent Shoulder [place] Suture - [id number] Implanted:Qty: 1 on 09/16/2020 by Miguel Angel Farias MD at [facility] Left: Shoulder [employer] 05/25/2024 AR-2324BCM / / [id number] [employer] Ar-2324 Bcm Swivelock 4.75mm 24.5mm Self Punch Vent Shoulder [place] Suture - [id number] Implanted:Qty: 1 on 09/16/2020 by Miguel Angel Farias MD at [facility] Left: Shoulder [employer] 05/25/2024 AR-2324BCM / / [id number] Procedures Procedure Name Priority Date/Time Associated Diagnosis [...] signed by: Henri London M.D. Melonie Greene NP IM XR PROCEDURES Final Result * XR Ankle [...] signed by: Henri London M.D. Melonie Greene NP IMG XR PROCEDURES Final Result from Last 3 [place] [address] MEDICARE [facility] MEDICARE MEDICARE [employer] [facility] Care Teams Direct Selling Counselor Relationship Specialty Start Date End Date Zechariah Chang MD PCP - General 02/01/17 Jo Ann Espinoza, RN Registered Nurse 06/03/17
--- OUTSIDE RECORDS SUMMARY | 2024-10-28 13:38 | XMS_ITS | Clinical Summary ---
Author Organization [facility] Address [address] [place] [address] Care Team Providers Care Arcade Game Technician Name Role Phone Zechariah Chang MD Primary Care Provider [phone]- [phone] Allergies Active Allergy Reactions Criticality Noted Date Comments Doxycycline Swelling Medium 04/19/2024 Swelling of legs Erythromycin Nausea and Vomiting,Vomiting Low 06/03 Penicillins GI Upset 04/18/2024 Medications albuterol sulfate HFA 108 (90 Base) MCG/ACT inhaler Inhale 2 puffs into the lungs every 4 (four) hours as needed for Shortness of breath or Wheezing. Active aspirin EC (ECOTRIN) 81 MG tablet Take 1 tablet (81 mg total) by mouth daily. Active budesonide-for moterol (SYMBICORT) 160-4.5 MCG/ACT inhaler Inhale 2 puffs into the lungs 2 (two) times daily. Active buPROPion XL (WELLBUTRIN XL) 300 MG 24 hr tablet Take 1 tablet (300 mg total) by mouth every morning. Active Cholecalcifero l 50 MCG (1999 UT) Cap Take 2,000 Units by mouth daily. Active ezetimibe (ZETIA) 10 MG tablet Take 1 tablet (10 mg total) by mouth daily. Active fenofibrate 160 MG tablet Take 1 tablet (160 mg total) by mouth daily. 03/22/19 25 Active hydrOXYzine (ATARAX) 25 MG tablet Take 1 tablet (25 mg total) by mouth nightly as needed (insomnia). 03/05/19 25 Active hydroxychloroq uine (PLAQUENIL) 200 MG tablet Take 1 tablet (200 mg total) by mouth 2 (two) times daily. 12/02/19 Active lisinopril (PRINIVIL) 40 MG tablet Take 1 tablet (40 mg total) by mouth daily. 01/28/20 Active pantoprazole EC (PROTONIX) 40 MG tablet Take 1 tablet (40 mg total) by mouth daily. 03/20/19 Active rosuvastatin (CRESTOR) 40 MG tablet Take 1 tablet (40 mg total) by mouth daily. 01/01/20 24 Active carvedilol (COREG) 6.25 MG tablet Take 1 tablet (6.25 mg total) by mouth 2 (two) times daily with meals. 60 tablet 04/20/19 25 Active nitroglycerin (NITROSTAT) 0.[address] 1 tablet (0.4 mg total) under the tongue every 5 (five) minutes as needed for Chest Pain. 10 tablet 04/20/19 25 Active REPATHA SURECLICK 140 MG/ML injection (PEN) Inject 1 mL (140 mg total) into the skin every 14 (fourteen) days. 05/11/19 25 Active montelukast (SINGULAIR) 10 MG tablet Take 1 tablet (10 mg total) by mouth nightly at bedtime. 05/12/19 Active clopidogrel (PLAVIX) 75 MG tablet Take 1 tablet (75 mg total) by mouth daily. 90 tablet 2 05/19/19 25 Active oxyCODONE immediate release (ROXICODONE) 5 MG immediate release tabletIndicati ons:Acute Pain < 3 Day Supply Take 1 tablet (5 mg total) by mouth every 6 (six) hours as needed for Pain. Indications: Acute Pain < 3 Day Supply 10 tablet 05/19/19 25 Active acetaminophen (TYLENOL) 500 MG tablet Take 2 tablets (1,000 mg total) by mouth 2 (two) times a day. Active [place]-3 Fatty Acids (FISH OIL) 500 MG capsule Take 1,000 mg by mouth daily. Active semaglutide-we ight management (WEGOVY) 0.5 mg/dose injection (PEN)Indicatio ns:Weight Loss Inject 0.5 mg into the skin once a week. Indications: Weight Loss NEW DOSE 10/27/24 2 mL 1 10/28/19 25 Active semaglutide-we ight management (WEGOVY) 0.25 mg/dose injection (PEN)Indicatio ns:Obesity INJECT ONE DOSE SUBCUTANEOUSLY ONCE A WEEK 4 mL 1 09/15/19 25 025 Discontinu ed(Other- Please enter comment in Notes field) Active Problems Problem Noted Date Diagnosed Date Essential hypertension 08/19/2024 Obesity 08/19/2024 Overview (08/19/2024): Class 3 Ataxia 07/13/2024 NSTEMI (non-ST elevated myoc ardial infarction) ([facility]) 04/18/2024 Encounters Date Type Department Care Team Description 10/27/2024 Telephone [facility] [address] [address] Kylah Mijares APRN Medication (INCREASE DOSE OF WEGOVY) 10/23/2024 Telephone [facility] [address] [address] Kylah Mijares CROP AND SOIL TECHNICIAN Medication 09/14/2024 5:43 AM CDT - 09/14/2024 11:59 PM CDT Hospital Encounter [facility] [address] [place] [address] Jannie Irwin MD Discharge Disposition: Home or Self Care (Routine Discharge) 09/14/2024 Travel 09/03/2024 5:41 AM CDT - 09/03/2024 11:59 PM CDT Hospital Encounter [facility] [address] [place] [address] Jannie Irwin MD Discharge Disposition: Home or Self Care (Routine Discharge) 09/03/2024 Travel 09/02/2024 6:01 AM CDT - 09/02/2024 11:59 PM CDT Hospital Encounter [facility] [address] [place] [address] Jannie Irwin MD Discharge Disposition: Home or Self Care (Routine Discharge) 09/02/2024 Travel 08/31/2024 5:52 AM CDT - 08/31/2024 11:59 PM CDT Hospital Encounter [facility] [address] [place] [address] Jannie Irwin MD Discharge Disposition: Home or Self Care (Routine Discharge) 08/31/2024 Travel 08/27/2024 5:43 AM CDT - 08/27/2024 11:59 PM CDT Hospital Encounter [facility] [address] [place] [address] Jannie Irwin MD Discharge Disposition: Home or Self Care (Routine Discharge) 08/27/2024 Travel 2024 5:42 AM CDT - 2024 11:59 PM CDT Hospital Encounter [facility] [address] [place] [address] Jannie Irwin MD Discharge Disposition: Home or Self Care (Routine Discharge) 2024 Travel 08/20/2024 5:42 AM CDT - 08/20/2024 11:59 PM CDT Hospital Encounter [facility] [address] [place] [address] Jannie Irwin MD Discharge Disposition: Home or Self Care (Routine Discharge) 08/20/2024 Travel 08/19/2024 5:54 AM CDT - 08/19/2024 11:59 PM CDT Hospital Encounter [facility] [address] [place] [address] Jannie Irwin MD Discharge Disposition: Home or Self Care (Routine Discharge) 08/19/2024 [facility] [address] [address] Janet Potts, NETWORK INTERN Prior Authorization (wegovy) 08/19/2024 Travel 08/18/2024 1:45 PM CDT Office Visit [facility] [address] [place] [address] Kylah Mijares APRN Hypertension; Lipids; Follow Up (3 month follow up) 08/18/2024 Telephone [facility] [place] [address] [place] [address] Janet Potts CMA Medication Request (wegovy) 08/18/2024 Travel 08/17/2024 5:35 AM CDT - 08/17/2024 11:59 PM CDT Hospital Encounter [facility] [address] [place] [address] Jannie Irwin MD Discharge Disposition: Home or Self Care (Routine Discharge) 08/17/2024 Travel 08/12/2024 5:49 AM CDT - 08/12/2024 11:59 PM CDT Hospital Encounter [facility] [address] [place] [address] Jannie Irwin MD Discharge Disposition: Home or Self Care (Routine Discharge) 08/12/2024 Travel 08/10/2024 5:40 AM CDT - 08/10/2024 11:59 PM CDT Hospital Encounter [facility] [address] [place] [address] Jannie Irwin MD Discharge Disposition: Home or Self Care (Routine Discharge) 08/10/2024 Travel 08/06/2024 5:35 AM CDT - 08/06/2024 11:59 PM CDT Hospital Encounter [facility] [address] [place] [address] Jannie Irwin MD Discharge Disposition: Home or Self Care (Routine Discharge) 08/06/2024 Travel 08/05/2024 6:02 AM CDT - 08/05/2024 11:59 PM CDT Hospital Encounter [facility] [address] [place] [address] Jannie Irwin MD Discharge Disposition: Home or Self Care (Routine Discharge) 08/05/2024 Travel 08/03/2024 5:41 AM CDT - 08/03/2024 11:59 PM CDT Hospital Encounter [facility] [address] [place] [address] Jannie Irwin MD Discharge Disposition: Home or Self Care (Routine Discharge) 08/03/2024 Travel 07/30/2024 5:59 AM CDT - 07/30/2024 11:59 PM CDT Hospital Encounter [facility] [address] [place] [address] Jannie Irwin MD Discharge Disposition: Home or Self Care (Routine Discharge) 07/30/2024 Travel 07/29/2024 5:56 AM CDT - 07/29/2024 11:59 PM CDT Hospital Encounter [facility] [address] [place] [address] Jannie Irwin MD Discharge Disposition: Home or Self Care (Routine Discharge) 07/29/2024 Travel from Last 3 Months Immunizations Immunization Administration Dates Next Due Fluzone (IIV3, Trivalent, 0.5 ML Prefilled Syrin ) 04/20/2024 Family History Medical History Relation Comments back problems Brother 1 Cancer Father eye, enucleation then mets after 10 years Suicide Father COPD Mother smoker Mother Relation Status Comments Brother 1 Alive Brother 2 Alive Father (Age 62) Mother (Age 68) Social History Tobacco Use Types Packs/Day Years Used Date Smoking Tobacco: Never Smokeless Tobacco: Never Comments:Second hand exposur e from parents Alcohol Use Standard Drinks/Week Comments Not Currently 4 (1 standard drink = 0.6 oz pur e alcohol) [facility] Utilities Answer Date Recorded In the past 12 months has e electric, gas, oil, or water [employer] threatened to shut off services in your home? No 07/13/2024 Humiliation, Afraid, Rape, and Kick questionnair e Answer Date Recorded Within the last year, have y ou been afraid of your partner or ex-partner? No 07/13/2024 Within the last year, have y ou been humiliated or emotionally abused in other ways by your partner or ex-partner? No Within the last year, have y ou been kicked, hit, slapped, or otherwise physically hurt by your partner or ex-partner? No 07/13/2024 Within the last year, have y ou been raped or forced to have any kind of sexual activity by your partner or ex-partner? No 07/13/2024 Overall Financial Resource Strain (CARDIA) Answe r Date Recorded How hard is it for you to pa y for the very basics like food, housing, medical care, and heating? Not hard at all 07/13/2024 Hunger Vital Sign Answer Date Recorded Within the past 12 months, y ou worried that your food would run out before you got the money to buy more. Never true 07/14/19 25 Within the past 12 months, t he food you bought just didn't last and you didn't have money to get more. Never true 07/13/2024 PRAPARE - Transportation Answer Date Re corded In the past 12 months, has l ack of transportation kept you from medical appointments or from getting medications? No 06/25 In the past 12 months, has l ack of transportation kept you from meetings, work, or from getting things needed for daily living? No 07/13/2024 Housing Stability Vital Sign Answer Eric e Recorded In the last 12 months, was t here a time when you were not able to pay the mortgage or rent on time? No 07/13/2024 In the past 12 months, how m any times have you moved where you were living? 0 07/13/2024 At any time in the past 12 m [facility], were you homeless or living in a halfway (including now)? No 07/13/2024 Comments No Sex and Gender Information Value Date Recorded Sex Assigned at Female 04/18/2024 8:33 PM DETECTIVE BUREAU CHIEF Legal Sex Female 4:04 PM DETECTIVE BUREAU CHIEF Gender Identity Not on file Sexual Orientation Not on file Occupation Industry Job Start Date Job End Date retired from school substitu te teaching, paraprofessional for special education. Not on file Not on file Not on file Last Filed Vital Signs Vital Sign Reading Time Taken Comments Blood Pressure 144/80 08/18/2024 1:37 PM CDT Pulse 80 08/18/2024 1:37 PM CDT Temperature 36.5 C (97.7 F) 07/14/2024 11:10 AM CDT Respiratory Rate 20 07/14/2024 11:1 0 AM CDT Oxygen Saturation 97% 08/18/2024 1:37 PM CDT Inhaled Oxygen Concentration - - Weight 109.6 kg (241 lb 9.6 oz) 08/18/2024 1:37 PM CDT Height 157.5 cm (5' 2) 08/18/2024 1:37 PM CDT Body Mass Index 44.19 08/18/2024 1:37 PM CDT Plan of Treatment Upcoming Encounters Date Type Department Care Team (Late st Contact Info) Description 12/14/2024 1:30 PM CDT [facility] Visit [facility] [place] [place], [place] [id number] Jannie Irwin MD Three [facility]. [address] [place] [address] Health Maintenance Due Date Last Done Comments Colorectal Cancer Screening Colonoscopy (10 Years) 1955 Hepatitis C 08/23/1973 DTaP, Tdap and Td Vaccines ( 1 - Tdap) 08/23/1974 Pneumococcal Vaccine: 50+ Years (1 of 2 - PCV) 08/23/1974 Mammogram Screening 1995 Zoster Vaccines (1 of 2) 08/23/2005 RSV Immunization or 60+ Years (1 - Risk 60-74 years 1-dose series) 2015 Annual Medicare Wellness Visit 08/23/2020 Dexa Scan (General) 08/23/2020 COVID-19 Vaccine (3 - 2024-2 6 season) 2024 05/30/2020, 04/30/2020 Meningococcal B Vaccine Aged Out No l onger eligible based on patient's age to complete this topic Meningococcal Vaccine Aged Out No bandar cliff eligible based on patient's age to complete this topic RSV Immunizations Under 20 Months Aged Out No longer eligible b ased on patient's age to complete this topic Goals Goal Patient Goal Type Associated Problems Recent Progress Patient-Stated? Author Health - patient able to perform ADLs independently Lifestyle No Nitin López, RN Safety Patient/family will have appropriate support at home upon discharge Lifestyle Nitin Conway, RN Insurance [facility] MEDICARE Advance Directives * Full Code (Latest Code Status on File) Date Activated Date Inactivated Comments 07/13/2024 2:40 PM 07/14/2024 4:10 PM * Full Code Date Activated Date Inactivated Comments 04/18/2024 11:51 PM 04/20/2024 1:19 PM Care Teams Arcade Game Technician Relationship Specialty Start Date End Date Zechariah Chang MD [address] [address] PCP - General FAMILY PRACTICE 04/19/24
--- OUTSIDE RECORDS SUMMARY | 2024-10-28 13:38 | XMS_ITS | Encounter Summary ---
Author Organization [facility] Address [address] [place] [address] Care Team Providers Care Electrician Station Assistant Name Role Phone Zechariah Chang MD Primary Care Provider +1- [phone] Reason for Visit * Reason Onset Date Comments Medication 10/23/2024 Encounter Details Date Type Department Care Team (Late st Contact Info) Description 10/23/[address] [facility] [address] [place] [place], [place] [id number] Kylah Mijares APRN Three [facility]. [address] [place] [address] Medication Social History Tobacco Use Types Packs/Day Years Used Date Smoking Tobacco: Never Smokeless Tobacco: Never Comments:Second hand exposur e from parents Alcohol Use Standard Drinks/Week Comments Not Currently 4 (1 standard drink = 0.6 oz pur e alcohol) [facility] Utilities Answer Date Recorded In the past 12 months has e [employer], gas, oil, or water [employer] [facility] [employer] [facility] threatened to shut off services in your [...] any time in the past 12 m onths, were you homeless or living in a snf (including now)? No 07/13/2024 Comments No Sex and Gender Information Value Date Recorded Sex Assigned at Female 04/18/2024 8:33 PM RETAIL SALES TEAMMATE Legal Sex Female 4:04 PM RETAIL SALES TEAMMATE Gender Identity Not on file Sexual Orientation Not on file Occupation Industry Job Start Date Job End Date retired from school substitu te teaching, paraprofessional for special education. Not on file Not on file Not on file documented as of this encounter Functional Status * Are you deaf or do you have serious difficulty hearing Answer Date of Assessment Author Status No 07/13/2024 5:00 PM CDT Maeve Gomez RN Active * Are you blind or do you have serious difficulty seeing, even when wearing glasses? Answer Date of Assessment Author Status No 07/13/2024 5:00 PM JENNIFERT Maeve Gomez RN Active * Do you have serious difficulty walking or climbing stairs? Answer Date of Assessment Author Status Yes 07/13/2024 5:00 PM Maeve Nichols RN Active * Do you have difficulty dressing or bathing? Answer Date of Assessment Author Status Yes 07/13/2024 5:00 PM JENNIFERT Maeve Gomez RN Active * Because of a physical, mental, or emotional condition, do you have difficulty doing errands alone such as visiting a doctor's office or shopping? Answer Date of Assessment Author Status No 07/13/2024 5:00 PM Maeve Nichols RN Active documented as of this encounter Mental Status * Because of a physical, mental, or emotional condition, do you have serious difficulty concentrating, remembering, or making decisions? Answer Entry Date Author Status No 07/13/2024 5:00 PM Maeve Nichols RN Active documented in this encounter Progress Notes * Radha Dunn RN - 10/27/2024 10:01 AM CDT Informed pt of the above per Kylah. Pt verbalized understanding. * Kylah Mijares APRN - 10/27/2024 9:52 AM CDT Increase to 0.5 mg weekly. Can re-evaluate dose in another month or so * Yulissa Claros RN - 10/23/2024 4:20 PM CDT Patient left a VM stating she started Wegovy about 2-3 months ago. The medication was working at first but no longer is. Patient asked if the dose could be increased to the next tier. documented in this encounter Plan of Treatment Upcoming Encounters Date Type Department Care Team (Late st Contact Info) Description 12/14/2024 1:30 PM CDT [facility] [place] [place] [address] Jannie Irwin MD Three [facility]. [address] [place] [address] documented as of this encounter Goals Goal Patient Goal Type Associated Problems Recent Progress Patient-Stated? Author Health - patient able to perform ADLs independently Lifestyle No Nitin López, CRISTINA Safety Patient/family will have appropriate support at home upon discharge Lifestyle No Nitin López RN documented as of this encounter Visit Diagnoses Not on filedocumented in this encounter Care Teams Electrician Station Assistant Relationship Specialty Start Date End Date Zechariah Chang MD [address] [place] [address] [address] [place] [address] PCP - General FAMILY PRACTICE 04/19/24 documented as of this encounter
--- OUTSIDE RECORDS SUMMARY | 2024-10-28 13:38 | XMS_ITS | Encounter Summary ---
Author Organization [facility] Address [facility] [place] [address] Care Team Providers Care Application Internship Name Role Phone Zechariah Chang MD Primary Care Provider +1- [phone] Reason for Visit * Reason Onset Date Comments Medication 10/27/2024 INCREASE DOSE OF WEGOVY Encounter Details Date Type Department Care Team (Late st Contact Info) Description 10/27/2024 Telephone [facility], [address] [place], [place] [id number] Kylah Mijares APRN Three [facility]. [address] [place] [address] Medication (INCREASE DOSE OF WEGOVY) Social History Tobacco Use Types Packs/Day Years Used Date Smoking Tobacco: Never Smokeless Tobacco: Never Comments:Second hand exposur e from parents Alcohol Use Standard Drinks/Week Comments Not Currently 4 (1 standard drink = 0.6 oz pur e alcohol) [facility] Utilities Answer Date Recorded In the past 12 months has e electric, gas, oil, or water company threatened to shut off services in your [...] any time in the past [address] [facility], were you homeless or living in a custodial (including now)? No 07/13/2024 Comments No Sex and Gender Information Value Date Recorded Sex Assigned at Female 04/18/2024 8:[address] OILING TRUCK DRIVER Legal Sex Female 4:[address] OILING TRUCK DRIVER Gender Identity Not on file Sexual Orientation [...] Assessment Author Status No 07/13/2024 5:00 PM CDMaeve Castellanos RN Active * Are you blind or do you have serious difficulty seeing, even when wearing glasses? Answer Date of Assessment Author Status No 07/13/2024 5:00 PM Maeve Nichols RN Active * Do you have serious [...] documented in this encounter Progress Notes * Tegan Hernandez RN - 10/27/2024 10:09 AM CDT Images from the original note were not included. Note Increase to 0.5 mg weekly. Can re-evaluate dose in another month or so Per Kylah Mijares NP Script sent to pharmacy. * Tegan Hernandez RN - 10/27/2024 10:08 AM CDT ----- Message from Radha Dunn RN sent at 10/27/2024 10:02 AM CDT ----- Please update medlist with new dose. Thanks ----- Message ----- From: Yulissa Claros RN Sent: 10/27/2024 9:53 AM CDT To: Roxanne Irwin Nurse ----- Message ----- From: Kylah Mijares APRN Sent: 10/27/2024 9:53 AM CDT To: Yulissa Claros RN documented in this encounter Plan of Treatment Upcoming Encounters Date Type Department Care Team (Late st Contact Info) Description 12/14/2024 1:30 PM CDT [facility] [place] [place], [place] [address] Jannie Irwin MD Three [facility]. [address] [place] [address] documented as of this encounter Goals Goal Patient Goal Type Associated Problems Recent Progress Patient-Stated? Author Health - patient able to perform ADLs independently Lifestyle Nitin Conway RN Safety Patient/family will have appropriate support at home upon discharge Lifestyle No Nitin López RN documented as of this encounter Visit Diagnoses Diagnosis Obesity- Primary Obesity, unspecified documented in this encounter Care Teams Application Internship Relationship Specialty Start Date End Date Zechariah Chang MD [address] [facility] [address] [place] [address] PCP - General FAMILY PRACTICE 04/19/24 documented as of this encounter
--- OUTSIDE RECORDS SUMMARY | 2024-10-28 13:38 | XMS_ITS | Clinical Summary ---
Author Organization [facility] Address [address] [place] [place] [address] Care Team Providers Care Honey Grader And Blender Name Role Phone Zechariah Chang MD Primary Care Provider + Brigitte Small RN Unavailable [phone] Source Comments [facility],non-owned Affiliates and Associated Physician Practices is amultiple site organization consisting of ambulatory clinics and hospital sitesin [place], [place], [place] and [place]. This disclosure is being madepursuant to the Care Everywhere program and may not contain all information available regarding this patient. Last updated 17.[facility] Allergies Active Allergy Reactions Criticality Noted [...] and heating? Not hard at all 07/13/2022 [facility] [place] of Occupat ional Health - Occupational Stress [...] place to sleep or slept in a snf (including now)? No 07/13/2022 Comments No Sex [...] - Risk 60-74 years 1-dose series) 2015 DEPRESSION SCREENING 02/26/2024 COVID-19 VACCINE (3 - 2024- season) 2024 05/30/2020, 04/30/2020 INFLUENZA VACCINE (#1) 2024 SCREENING FOR DIABETES [...] 7 - 26 mg/dL 07/17/2022 2:55 AM [facility] Creatinine 0.68 0.56 - 0.96 mg/dL 07/17/2022 2:55 AM [facility] Sodium 136 136 - 145 mmol/L 07/17/2022 2:55 AM [facility] Potassium 4.3 3.5 - 4.5 mmol/L 07/17/2022 2:55 AM [facility] Chloride 102 98 - 107 mmol/L 07/17/2022 2:55 AM [facility] CO2 26 22 - 29 mmol/L 07/17/2022 2:55 AM [facility] Glucose 140(H) 70 - 115 mg/dL 07/17/2022 2:55 AM [facility] Calcium 8.6 8.4 - 10.2 mg/dL 07/17/2022 2:55 AM [facility] Anion Gap 12 8 - 18 07/17/2022 2:55 AM [facility] BUN/Creatinine Ratio 24(H) 7 - 23 07/17/2022 2:55 AM [facility] Osmolality Calculated 285 270 - 300 mOsm/kg 07/17/2022 2:55 AM [facility] eGFR by CKD-EPI >90 >=90 mL/min/1.7 3 m2 07/17/2022 2:55 AM CDT [facility] Blood BLOOD SPECIMEN / Unknown Lab Venipuncture / Unknown 07/17/2022 2:11 AM CDT 07/17/2022 2:27 AM CDT Mckenzie Overton MD LAB - CHEMISTRY ORDERABLES Final Result Performing Organization Address City/State/[facility] Co de Phone Number [facility] [address] [place] [address], [facility] [phone] from Last 3 Months or Most Recently Relevant [place] [address] MEDICARE [facility] [place] [address] [place] [place] MEDICARE [facility] THIRD LIBERTARIAN LIABILITY [facility] Advance Directives * Full Code (Latest Code Status on File) Date Activated Date Inactivated Comments 07/13/2022 7:48 AM 07/18/2022 1:20 PM * Full Code Date Activated Date Inactivated Comments 07/30/2013 5:01 PM 07/31/2013 11:06 AM Care Teams Honey Grader And Blender Relationship Specialty Start Date End Date Zechariah Chang MD [address] [address] PCP - General Family Medicine 07/09/13 Brigitte Small, RN Cloth Reeler 07/30/13
--- OUTSIDE RECORDS SUMMARY | 2024-10-28 14:28 | XMS_ITS | Patient Health Record ---
Author Organization [facility] Address [address] [place], [place] [id number] Care Team Providers Care Digital Art Director Name Role Phone DOMINIC Lora Unavailable Zechariah Chang Unavailable Unavailable Reason For Referral No Information Plan Of Treatment No Information Insurance Providers Payer Name Payer Address Payer Phone Subscriber Number Group Number Insured Name Patient Relationship to Insured Coverage Start Date Coverage End Date [facility] [address] [address] [place] [address] [id number] KAY BRUMFIELD Self - patient is the insured
--- OUTSIDE RECORDS SUMMARY | 2024-10-28 14:28 | XMS_ITS | Clinical Summary ---
Author Organization [facility] Address [address] [place] [address] Care Team Providers Care Logistics Loss Prevention Manager Name Role Phone Zechariah Chang MD Primary Care Provider + Brigitte Small RN Unavailable [phone] Source Comments [facility],non-owned Affiliates and Associated Physician Practices is amultiple site organization consisting of ambulatory clinics and hospital sitesin [place], [place], [place] and [place]. This disclosure is being madepursuant to the Care Everywhere program and may not contain all information available regarding this patient. Last updated 17.[facility] Allergies Active Allergy Reactions Criticality Noted [...] and heating? Not hard at all 07/13/2022 [facility] [place] of Occupat ional Health - Occupational Stress [...] place to sleep or slept in a correction (including now)? No 07/13/2022 Comments No Sex [...] 7 - 26 mg/dL 07/17/2022 2:55 AM [facility] Creatinine 0.68 0.56 - 0.96 mg/dL 07/17/2022 2:55 AM [facility] Sodium 136 136 - 145 mmol/L 07/17/2022 2:55 AM [facility] Potassium 4.3 3.5 - 4.5 mmol/L 07/17/2022 2:55 AM [facility] Chloride 102 98 - 107 mmol/L 07/17/2022 2:55 AM [facility] CO2 26 22 - 29 mmol/L 07/17/2022 2:55 AM [facility] Glucose 140(H) 70 - 115 mg/dL 07/17/2022 2:55 AM [facility] Calcium 8.6 8.4 - 10.2 mg/dL 07/17/2022 2:55 AM [facility] Anion Gap 12 8 - 18 07/17/2022 2:55 AM [facility] BUN/Creatinine Ratio 24(H) 7 - 23 07/17/2022 2:55 AM [facility] Osmolality Calculated 285 270 - 300 mOsm/kg 07/17/2022 2:55 AM [facility] eGFR by CKD-EPI >90 >=90 mL/min/1.7 3 m2 07/17/2022 2:55 AM CDT [facility] Blood BLOOD SPECIMEN / Unknown Lab Venipuncture / Unknown 07/17/2022 2:11 AM CDT 07/17/2022 2:27 AM CDT Mckenzie Overton MD LAB - CHEMISTRY ORDERABLES Final Result Performing Organization Address City/State/[facility] Co de Phone Number [facility] [address] [place] [address], [facility] [phone] from Last 3 Months or Most Recently Relevant to Health Maintenance [place] [address] MEDICARE [facility] [place] [address] [place] MEDICARE [facility] THIRD DEMOCRAT LIABILITY [facility] Advance Directives * Full Code (Latest Code Status on File) Date Activated Date Inactivated Comments 07/13/2022 7:48 AM 07/18/2022 1:20 PM * Full Code Date Activated Date Inactivated Comments 07/30/2013 5:01 PM 07/31/2013 11:06 AM Care Teams Logistics Loss Prevention Manager Relationship Specialty Start Date End Date Zechariah Chang MD [address] [address] PCP - General Family Medicine 07/09/13 Brigitte Small, RN Electrophonic Engineer 07/30/13
--- OUTSIDE RECORDS SUMMARY | 2024-10-28 14:28 | XMS_ITS | Encounter Summary ---
Author Organization [facility] Address [address] [place] [address] Care Team Providers Care Concrete Rod Buster Name Role Phone Zechariah Chang MD Primary Care Provider [phone] Reason for Visit * Reason Onset Date Comments Medication 10/23/2024 Encounter Details Date Type Department Care Team (Late st Contact Info) Description 10/23[facility]2024 [facility], [address] [place], [place] [id number] Kylah Mijares APRN Three [facility]. [address] [place] [address] Medication Social History Tobacco Use Types Packs/Day Years Used Date Smoking Tobacco: Never Smokeless Tobacco: Never Comments:Second hand exposur e from parents Alcohol Use Standard Drinks/Week Comments Not Currently 4 (1 standard drink = 0.6 oz pur e alcohol) [facility] Utilities Answer Date Recorded In the past 12 months has e [employer], gas, oil, or water [employer] threatened to shut off services in your [...] were you homeless or living in a senior living (including now)? No 07/13/2024 Comments No Sex and Gender Information Value Date Recorded Sex Assigned at Female 04/18/2024 8:33 PM EXHIBIT CARPENTER Legal Sex Female 4:04 PM EXHIBIT CARPENTER Gender Identity Not on file Sexual Orientation [...] CDT Office Visit [facility], [address] [place] [address] Jannie Irwin MD Three [facility]. [address] [place] [address] documented as of this encounter Goals Goal Patient Goal Type Associated Problems Recent Progress Patient-Stated? Author Health - patient able to perform ADLs independently Lifestyle No Nitin López, CRISTINA Safety Patient/family will have appropriate support at home upon discharge Lifestyle No Nitin López RN documented as of this encounter Visit Diagnoses Not on filedocumented in this encounter Care Teams Concrete Rod Buster Relationship Specialty Start Date End Date Zechariah Chang MD [address] [place] [address] [address] [place] [address] PCP - General FAMILY PRACTICE 04/19/24 documented as of this encounter
--- OUTSIDE RECORDS SUMMARY | 2024-10-28 14:28 | XMS_ITS | Clinical Summary ---
Author Organization [facility] Address [address] [place] [address] Care Team Providers Care Parachute Officer Name Role Phone Zechariah Chang MD Primary Care Provider [phone]- [phone] Allergies Active Allergy Reactions Criticality Noted Date [...] mouth 2 (two) times a day. Active [place]-3 Fatty Acids (FISH OIL) 500 MG capsule [...] 07/13/2024 NSTEMI (non-ST elevated myoc ardial infarction) ([facility]) 04/18/2024 Encounters Date Type Department Care Team Description 10/27/2024 Telephone [facility] [address] [address] Kylah Mijares APRN Medication (INCREASE DOSE OF WEGOVY) 10/23/2024 Telephone [facility] [address] [address] Kylah Mijares SUPPRESSION CREW LEADER Medication 09/14/2024 5:43 AM CDT - 09/14/2024 11:59 PM CDT Hospital Encounter [facility] Card[facility] Rehab [address] [place] [address] Jannie Irwin MD Discharge Disposition: Home or Self Care (Routine Discharge) 09/14/2024 Travel 09/03/2024 5:41 AM CDT - 09/03/2024 11:59 PM CDT Hospital Encounter [facility] Rehab [address] [place] [address] Jannie Irwin MD Discharge Disposition: Home or Self Care (Routine Discharge) 09/03/2024 Travel 09/02/2024 6:01 AM CDT - 09/02/2024 11:59 PM CDT Hospital Encounter [facility] Cardiop[facility] Rehab [address] [place] [address] Jannie Irwin MD Discharge Disposition: Home or Self Care (Routine Discharge) 09/02/2024 Travel 08/31/2024 5:52 AM CDT - 08/31/2024 11:59 PM CDT Hospital Encounter [facility] [address] [place] [address] Jannie Irwin MD Discharge Disposition: Home or Self Care (Routine Discharge) 08/31/2024 Travel 08/27/2024 5:43 AM CDT - 08/27/2024 11:59 PM CDT Hospital Encounter [facility] [address] [place] [address] Jannie Irwin MD Discharge Disposition: Home or Self Care (Routine Discharge) 08/27/2024 Travel 2024 5:42 AM CDT - 2024 11:59 PM CDT Hospital Encounter [facility] [address] [place] [address] Jannie Irwin MD Discharge Disposition: Home or Self Care (Routine Discharge) 2024 Travel 08/20/2024 5:42 AM CDT - 08/20/2024 11:59 PM CDT Hospital Encounter [facility] Card[facility] Rehab [address] [place] [address] Jannie Irwin MD Discharge Disposition: Home or Self Care (Routine Discharge) 08/20/2024 Travel 08/19/2024 5:54 AM CDT - 08/19/2024 11:59 PM CDT Hospital Encounter [facility] Re[facility] [address] [place] [address] Jannie Irwin MD Discharge Disposition: Home or Self Care (Routine Discharge) 08/19/2024 [facility] [address] [address] Janet Potts, RAMP ATTENDANT Prior Authorization (wegovy) 08/19/2024 Travel 08/18/2024 1:45 PM CDT Office Visit [facility] [place] [address] [place] [address] Kylah Mijares APRN Hypertension; Lipids; Follow Up (3 month follow up) 08/18/2024 Telephone [facility] [place] [address] [place] [address] Janet Potts CMA Medication Request (wegovy) 08/18/2024 Travel 08/17/2024 5:35 AM CDT - 08/17/2024 11:59 PM CDT Hospital Encounter [facility] Card[facility] Re[facility] [address] [place] [address] Jannie Irwin MD Discharge Disposition: Home or Self Care (Routine Discharge) 08/17/2024 Travel 08/12/2024 5:49 AM CDT - 08/12/2024 11:59 PM CDT Hospital Encounter [facility] Card[facility] Re[facility] [address] [place] [address] Jannie Irwin MD Discharge Disposition: Home or Self Care (Routine Discharge) 08/12/2024 Travel 08/10/2024 5:40 AM CDT - 08/10/2024 11:59 PM CDT Hospital Encounter [facility] Re[facility] [address] [place] [address] Jannie Irwin MD Discharge Disposition: Home or Self Care (Routine Discharge) 08/10/2024 Travel 08/06/2024 5:35 AM CDT - 08/06/2024 11:59 PM CDT Hospital Encounter [facility] Re[facility] [address] [place] [address] Jannie Irwin MD Discharge Disposition: Home or Self Care (Routine Discharge) 08/06/2024 Travel 08/05/2024 6:02 AM CDT - 08/05/2024 11:59 PM CDT Hospital Encounter [facility] Card[facility] Re[facility] [address] [place] [address] Jannie Irwin MD Discharge Disposition: Home or Self Care (Routine Discharge) 08/05/2024 Travel 08/03/2024 5:41 AM CDT - 08/03/2024 11:59 PM CDT Hospital Encounter [facility] Re[facility] [address] [place] [address] Jannie Irwin MD Discharge Disposition: Home or Self Care (Routine Discharge) 08/03/2024 Travel 07/30/2024 5:59 AM CDT - 07/30/2024 11:59 PM CDT Hospital Encounter [facility] Card[facility] Re[facility] [address] [place] [address] Jannie Irwin MD Discharge Disposition: Home or Self Care (Routine Discharge) 07/30/2024 Travel 07/29/2024 5:56 AM CDT - 07/29/2024 11:59 PM CDT Hospital Encounter [facility] Cardiop[facility] Rehab [address] [place] [address] Jannie Irwin MD Discharge Disposition: Home or [...] drink = 0.6 oz pur e alcohol) [facility] Utilities Answer Date Recorded In the past 12 months has e electric, gas, oil, or water [employer] threatened to shut off services in your [...] any time in the past 12 m [facility], were you homeless or living in a halfway (including now)? No 07/13/2024 Comments No Sex and Gender Information Value Date Recorded Sex Assigned at Female 04/18/2024 8:33 PM FOOD SERVICE ORDER CLERK Legal Sex Female 4:04 PM FOOD SERVICE ORDER CLERK Gender Identity Not on file Sexual Orientation [...] CDT Office Visit [facility], [address] [place], [place] [id number] Jannie Irwin MD Three [facility]. [address] [place] [address] Health Maintenance Due Date Last Done Comments [...] upon discharge Lifestyle Nitin Conway, RN Insurance [facility] MEDICARE Advance Directives * Full Code (Latest Code Status on File) Date Activated Date Inactivated Comments 07/13/2024 2:40 PM 07/14/2024 4:10 PM * Full Code Date Activated Date Inactivated Comments 04/18/2024 11:51 PM 04/20/2024 1:19 PM Care Teams Parachute Officer Relationship Specialty Start Date End Date Zechariah Chang MD [address] [address] PCP - General FAMILY PRACTICE 04/19/24
--- OUTSIDE RECORDS SUMMARY | 2024-10-28 14:28 | XMS_ITS | Clinical Summary ---
Author Organization [facility] Address [address] [place] [address] Care Team Providers Care Probation Manager Name Role Phone Zechariah Chang MD [...] ons:hypertensi on Take 30 mg by mouth oil mixer before breakfast [address] (PROTONIX) 40 mg EC tablet Take 40 mg by mouth oil mixer before breakfast 1 Active rosuvastatin (CRESTOR) 40 mg tablet Take 40 mg by mouth oil mixer before breakfast 1 Active cholecalcifero l (VITAMIN D-3) 2000 unit capsule Take 2,000 Units by mouth oil mixer before breakfast Active aspirin 81 mg enteric coated tabletIndicati ons:prevention of thrombosis Take 81 mg by mouth oil mixer before breakfast Active oxyCODONE (ROXICODONE) 5 mg [...] mg tablet Take 25 mg by mouth oil mixer before breakfast 8 10/03/19 25 Discontinu ed(Patient [...] TO CALL THE SCHEDULING DEPARTMENT TODAY AT [phone], OPTION 1, TO SCHEDULE A FOLLOWUP APPOINTMENT [...] disease, which needs to be managed in [facility] just like any other chronic illnesses, is crucial. The weight gain will recur if you stop treating the disease. 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 Frequent monitoring and adjusting of the medications are also very important, so it is important to make and keep follow up appointments as scheduled. Before your next appointment, please complete the following tests: Abdominal ultrasound. For the ultrasound: [facility] Rad[facility] Scheduling . Get directions to our [...] on paper or in an karolina like avolution, Mobileum, or similar programs. Avoid ultra-processed foods as [...] [facility] conducts a wide array of clinical studies evaluating approaches to diet, nutrition and disease prevention. We are currently recruiting subjects for multiple clinical trials. If you are interested please call [phone]. [facility] Weight Loss Daily Food Intake: 50% Fruits and Category 1 Vegetables 30% Grains, Legumes, and Category 2 Vegetables 20% Proteins FRUITS serving size as indicated, approx 80 calories Apple- 1 medium Apricots- 3 medium Figs- 2 Grapefruit- 1 Cantaloupe- cup Cherries- 15 Kevin- medium Berries (blackberries, strawberries, blueberries, raspberries)- 1 and cup Grapes- 15 Honeydew- small Bailey- 2 small Nectarine- 2 small Tillman- 1 large Watermelon- 2 cups [place]- 2 small Tangerines- 2 small Pear- 1 medium CATEGORY 1 VEGETABLES unlimited servings, approx 10-25 calories per cup Artichokes Asparagus Bamboo Shoots Flores Sprouts Bok Joya Broccoli Brussel Sprouts Cabbage Cauliflower Celery Chives Joo Greens Mondovi Dandelion Greens Pickles Eggplant Escarole Mustard Greens Green Beans Garlic Leeks Lettuce Mushrooms Okra Onion (all) Peppers (eats) Radishes Salsa Watercress Zucchini GRAINS serving size [...] size cup , approx 45 calories Beets [place] Squash Austin Squash Carrots- c cook, 2 med, 12 baby Sweet potato ( medium) Yams ( medium) Alberta Gold Potato ( medium) LEGUMES serving size cup, approx 110 calories Split Peas Sweet Green Beans Fat free refried beans Green soy beans Hummus Beans- Black, Cannellini, Garbanzo, Kidney, Tyler, Mung, Somerton, Ocampo. Lentils PROTEIN serving size 5-6 oz [...] (2 T) Peanuts (7-8) Pistachios (2 T) Mcgill seeds (2T) Pumpkin Seeds (2T) Sesame Seeds (2 T) Nut butter made from above nuts (1 T) OILS- should be cold pressed serving size 1 teaspoon approx 40 calories Avocado Flaxseed [place] Canola Extra [place] Whitt Olives- 8-10 medium Martinez (from canola oil) DAIRY serving size: 6 oz or as indicated approx 80 calories Buttermilk Fat free Yogurt Plain low fat Yogurt (4 oz) Milk (nonfat or 2%) Soy Milk BEVERAGES unlimited Coffee- decaffeinated Herbal tea- decaffeinated Green tea- decaffeinated Water: plain, seltzer, or flavored seltzer CONDIMENTS unlimited Cinnamon Lemon [place] Mustard Tamari soy sauce Vinegar Stevia other herbs/spices Extracts (vanilla, almond, etc) [facility] Daily Food Intake: 50% Fruits and Category 1 Vegetables 30% Grains, Legumes, and Category 2 Vegetables 20% Proteins FRUITS serving size as indicated, approx 80 calories Apple- 1 medium Apricots- 3 medium Figs- 2 Grapefruit- 1 Cantaloupe- cup Cherries- 15 Kevin- medium Berries (blackberries, strawberries, blueberries, raspberries)- 1 and cup Grapes- 15 Honeydew- small Bailey- 2 small Nectarine- 2 small Tillman- 1 large Watermelon- 2 cups [place]- 2 small Tangerines- 2 small Pear- 1 medium CATEGORY 1 VEGETABLES unlimited servings, approx 10-25 calories per cup Artichokes Asparagus Bamboo Shoots Flores Sprouts Bok Joya Broccoli Brussel Sprouts Cabbage Cauliflower Celery Chives Joo Greens Mondovi Dandelion Greens Pickles Eggplant Escarole Mustard Greens [...] size cup , approx 45 calories Beets [place] Squash Austin Squash Carrots- c cook, 2 med, 12 baby Sweet potato ( medium) Yams ( medium) Alberta Gold Potato ( medium) LEGUMES serving size cup, approx 110 calories Split Peas Sweet Green Beans Fat free refried beans Green soy beans Hummus Beans- Black, Cannellini, Garbanzo, Kidney, Tyler, Mung, Som[place], Ocampo. Lentils PROTEIN serving size 5-6 oz [...] (2 T) Peanuts (7-8) Pistachios (2 T) Mcgill seeds (2T) Pumpkin Seeds (2T) Sesame Seeds (2 T) Nut butter made from above nuts (1 T) OILS- should be cold pressed serving size 1 teaspoon approx 40 calories Avocado Flaxseed [place] Canola Extra [place] Whitt Olives- 8-10 medium Martinez (from canola oil) DAIRY serving size: 6 oz or as indicated approx 80 calories Buttermilk Fat free Yogurt Plain low fat Yogurt (4 oz) Milk (nonfat or 2%) Soy Milk BEVERAGES unlimited Coffee- decaffeinated Herbal tea- decaffeinated Green tea- decaffeinated Water: plain, seltzer, or flavored seltzer CONDIMENTS unlimited Cinnamon Lemon [place] Mustard Tamari soy sauce Vinegar Stevia other herbs/spices Extracts (vanilla, almond, etc) [facility] Metabolic Weight Loss Ultra-Processed Food Group Examples [...] BMI 41. Coronary artery disease invo lving wy[place] coronary artery of [place] heart without angina pectoris 08/26/2024 Primary hypertension 08/26/2024 Mixed hyperlipidemia 08/26/2024 LARRY on CPAP 08/26/2024 Assessment & Plan (10/02/2024 1:04 PM CDT): Continue current CPAP use Discussed role of weight loss in improving LARRY sx. COPD (chronic obstructive pulmonary disease) 03/2024 Myalgia 02/28/2022 Complete tear of left rotator cuff 09/01/2020 Overview (09/01/2020): Added automatically from request for surgery [id number] Chronic left-sided low back pain with left-sided sciatica 06/03/2017 Radiculopathy, lumbosacral region 06/03/2017 Spinal stenosis of lumbar re gion with neurogenic claudication 06/03/2017 Lumbosacral spondylosis without myelopathy 06/03 Encounters Date Type Department Care Team Description 10/02/2024 3:00 PM CDT Telemedicine [facility] Metabolic Weight Management [address] [place] [address] [address] [place] [id number] Gloria Becerra PA Encounter for weight management (Primary Dx); Class 3 drug-induced obesity with serious comorbidity and body mass index (BMI) of 40.0 to 44.9 in adult (HCC); LARRY on CPAP 09/30/2024 Telephone [facility] Metabolic Weight Management [address] [place] [address] Office [facility] [address] [place] [address] Nicole Gómez RN Appointment 09/29/2024 10:20 AM CDT Office Visit [facility] Orthopaedic Surgery [address] [facility] Office [address] [place] [address] Lashae Jarrett MD Pain in left foot (Primary Dx); Posterior tibial tendon dysfunction (PTTD) of left lower extremity 09/02/2024 10:30 AM CDT Office Visit [facility] Orthopaedic Surgery [address] [facility] 1st Floor [address] [place] [address] Melonie Greene NP Acquired deformity of left ankle and foot (Primary Dx); Pain in left foot; Hallux valgus (acquired), left foot; Primary localized osteoarthrosis of left ankle and foot; Posterior tibial tendon dysfunction (PTTD) of left lower extremity 09/02/2024 10:20 AM CDT - 09/02/2024 11:59 PM CDT Hospital Encounter [facility] Radiology at [facility] [address] [place] [address] Pain in left foot Discharge Disposition: Discharge [...] on file Legal Sex Female 6:51 AM ASSISTANT SOFTBALL COACH Gender Identity Not on file Sexual Orientation Straight 03/30/2021 4: 00 PM ASSISTANT SOFTBALL COACH Obstetrics History Last Filed Vital Signs Vital Sign Reading Time Taken Comments Blood Pressure 145/91 02/28/2022 3:41 PM ASSISTANT SOFTBALL COACH Pulse 84 02/28/2022 3:41 PM ASSISTANT SOFTBALL COACH Temperature 36.5 C (97.7 F) 12/25/2021 9:06 AM CDT Respiratory Rate 17 02/28/2022 3:41 PM ASSISTANT SOFTBALL COACH Oxygen Saturation 98% 02/28/2022 3:41 PM ASSISTANT SOFTBALL COACH Inhaled Oxygen Concentration - - Weight 103.4 [...] 2024 04/20/2024 Medical Devices Implanted Type Area Director Facilities Maintenance Device Identifier Shelf Expiration Date Model / Serial / Lot Jt Replacements Knee Bilateral: Knee [employer] Ar-1927bct Corkscrew Suturetape 5.5mm 14.7mm Bioabsorbable Full Thread 1.3mm - [id number] Implanted:Qty: 1 on 09/16/2020 by Miguel Angel Farias MD at [facility] Left: Shoulder [employer] 05/25/2022 AR-1927BCT / / [id number] [employer] Ar-1927bct Corkscrew Suturetape 5.5mm 14.7mm Bioabsorbable Full Thread 1.3mm - [id number] Implanted:Qty: 1 on 09/16/2020 by Miguel Angel Farias MD at [facility] Left: Shoulder [employer] 05/25/2022 AR-1927BCT / / [id number] [employer] Ar-1927bct Corkscrew Suturetape 5.5mm 14.7mm Bioabsorbable Full Thread 1.3mm - [id number] Implanted:Qty: 1 on 09/16/2020 by Miguel Angel Farias MD at [facility] Left: Shoulder [employer] 05/25/2022 AR-1927BCT / / [id number] [employer] Ar-2324 Bcm Swivelock 4.75mm 24.5mm Self Punch Vent Shoulder [place] Suture - [id number] Implanted:Qty: 1 on 09/16/2020 by Miguel Angel Farias MD at [facility] Left: Shoulder [employer] 05/25/2024 AR-2324BCM / / [id number] [employer] Ar-2324 Bcm [place] 4.75mm 24.5mm Self Punch Vent Shoulder [place] Suture - [id number] Implanted:Qty: 1 on 09/16/2020 by Miguel Angel Farias MD at [facility] Left: Shoulder [employer] 05/25/2024 AR-2324BCM / / [id number] Procedures Procedure Name Priority Date/Time Associated Diagnosis [...] Final Result from Last 3 [place] [address] MEDICARE [facility] MEDICARE MEDICARE [employer] [facility] Care Teams Probation Manager Relationship Specialty Start Date End Date Zechariah Chang MD PCP - General 02/01/17 Jo Ann Espinoza, RN Registered Nurse 06/03/17
--- OUTSIDE RECORDS SUMMARY | 2024-10-28 14:28 | XMS_ITS | Encounter Summary ---
Author Organization [facility] Address [facility] [place] [address] Care Team Providers Care Packing And Wrapping Supervisor Name Role Phone Zechariah Chang MD Primary Care Provider [phone] Reason for Visit * Reason Onset Date Comments Medication 10/27/2024 INCREASE DOSE OF WEGOVY Encounter Details Date Type Department Care Team (Late st Contact Info) Description 10/27/2024 Telephone [facility], [address] [place], [place] [id number] Kylah Mijares APRN [address] [facility]. [address] [place] [address] Medication (INCREASE DOSE OF WEGOVY) Social History Tobacco Use Types Packs/Day Years Used Date Smoking Tobacco: Never Smokeless Tobacco: Never Comments:Second hand exposur e from parents Alcohol Use Standard Drinks/Week Comments Not Currently 4 (1 standard drink = 0.6 oz pur e alcohol) [facility] Utilities Answer Date Recorded In the past [...] any time in the past 12 m [facility], were you homeless or living in a long-term (including now)? No 07/13/2024 Comments No Sex and Gender Information Value Date Recorded Sex Assigned at Female 04/18/2024 8:33 PM PASTORAL COUNSELOR Legal Sex Female 4:04 PM PASTORAL COUNSELOR Gender Identity Not on file Sexual Orientation [...] CDT Office Visit [facility] [place], [place] [id number] Jannie Irwin MD [facility]. [address] [place] [address] documented as of this encounter Goals Goal Patient Goal Type Associated Problems Recent Progress Patient-Stated? Author Health - patient able to perform ADLs independently Lifestyle Nitin Conway RN Safety Patient/family will have appropriate support at home upon discharge Lifestyle No Nitin López RN documented as of this encounter Visit Diagnoses Diagnosis Obesity- Primary Obesity, unspecified documented in this encounter Care Teams Packing And Wrapping Supervisor Relationship Specialty Start Date End Date Zechariah Chang MD [address] [facility] [address] [place] [address] PCP - General FAMILY PRACTICE 04/19/24 documented as of this encounter
== END 2024-10-28 13:35 | disposition home or self-care (01) ==
LOC: ANHED 13:15
PROVIDERS: Emergency Provider Physician Assistant; PCP Nurse Practitioner Family
DX: S93.601A Unspecified sprain of right foot, initial encounter (principal); X50.0XXA Overexertion from strenuous movement or load, initial encounter
CPT/HCPCS: 73630; 99283

== ENCOUNTER 2024-11-02 11:26 | Outpatient (CLI) | payer MEDICARE, OTHER, SELFPAY ==
--- NOTE | ~2024-11-02 | MM_ITS ---
EXAMINATION: screening [facility] BI w heather INDICATION: Asymptomatic, referred for screening mammogram COMPARISON: 10/31/2023 through 05/03/2016 TECHNIQUE: Digital Breast Tomosynthesis CC, MLO views of Both breasts were obtained with computer-aided detection to assist in interpretation of the study. FINDINGS: There are scattered areas of fibroglandular density. There is a circumscribed mass in the inferior medial left breast at middle third. Elsewhere, there are no mammographic features of malignancy. IMPRESSION: 1. Left breast Mass. 2. No evidence of malignancy in the Right breast. RECOMMENDATION: Left breast ultrasound BI-RADS Category 0: Incomplete: Needs additional imaging evaluation. Reviewed, dictated and finalized at location B.
== END 2024-11-02 11:27 | disposition home or self-care (01) ==
LOC: MICIMG 11:27
PROVIDERS: PCP Nurse Practitioner Family; Visit Provider Obstetrics & Gynecology Gynecology
DX: Z12.31 Encounter for screening mammogram for malignant neoplasm of breast (principal); R92.8 Other abnormal and inconclusive findings on diagnostic imaging of breast
CPT/HCPCS: 77063; 77067

== ENCOUNTER 2024-12-28 07:38 | Outpatient (CLI) | payer MEDICARE, OTHER, SELFPAY ==
--- NOTE | ~2024-12-28 | MMUS_ITS ---
EXAMINATION: MM diagnostic franca LT w heather, US breast LT limited INDICATION: 69-year old female; BI-RADS 0, callback from screening to evaluate left breast mass. COMPARISON: 11/02/2024 TECHNIQUE: Digital breast tomosynthesis ML and spot compression CC and MLO views of Left breast were obtained with computer-aided detection to assist in interpretation of the study. FINDINGS: The breasts are almost entirely fatty. A spiculated mass persists in the inferior medial in the middle third left breast which correlates to finding on the screening mammogram. Additional circumscribed mass is identified in the inferior medial adjacent to the spiculated lesion. LEFT BREAST ULTRASOUND FINDINGS: Targeted evaluation of the inferior medial left breast was completed. There is a 0.3 x 0.4 x 0.4 cm hypoechoic mass taller than wide at 6:00, 4 cm from the nipple, which correlates to the mammographic finding. This lesion is highly suspicious for malignancy. Also at 6:00, 5 cm from the nipple, corresponding to the additional mammographic finding, there is a 0.7 x 0.7 x 0.3 cm prescribed hypoechoic mass. IMPRESSION: 1. Highly suspicious LEFT breast mass at 6:00, 4 cm FN location that correlates to mammography finding. Biopsy is recommended. 2. Additional 0.7 cm circumscribed hypoechoic mass at 6:00, 5 cm FN. This lesion may represent an intramammary lymph node versus complicated cyst. Given the proximity to the suspicious mass, consideration should be given to aspiration/biopsy RECOMMENDATIONS: Ultrasound-guided core needle biopsy of LEFT breast mass at 6:00, 4 cm FN location. Ultrasound guided core needle biopsy of left breast mass at 6:00, 5 cm FN BI-RADS 5, HIGHLY SUSPICIOUS FOR MALIGNANCY Reviewed, dictated and finalized at location B. ICAL STAFF EDUCATOR IMPRESSION: 1. Highly suspicious LEFT breast mass at 6:00, 4 cm FN location that correlate s to mammography finding. Biopsy is recommended. 2. Additional 0.7 cm circumscribed hypoechoic mass at 6:00, 5 cm FN. This lesi on may represent an intramammary lymph node versus complicated cyst. Given the proximity to the suspicious mass, consideration should be given to aspiration/b iopsy RECOMMENDATIONS: Ultrasound-guided core needle biopsy of LEFT breast mass at 6:00, 4 cm FN locat ion. Ultrasound guided core needle biopsy of left breast mass at 6:00, 5 cm FN BI-RADS 5, HIGHLY SUSPICIOUS FOR MALIGNANCY
== END 2024-12-28 07:39 | disposition home or self-care (01) ==
LOC: MICIMG 07:40
PROVIDERS: PCP Nurse Practitioner Family; Visit Provider Nurse Practitioner Family
DX: N63.24 Unspecified lump in the left breast, lower inner quadrant (principal); R92.8 Other abnormal and inconclusive findings on diagnostic imaging of breast
CPT/HCPCS: 76642; 77061; 77065; G0279

== ENCOUNTER 2025-01-07 08:56 | Outpatient (CLI) | payer MEDICARE, OTHER, SELFPAY ==
--- NOTE | ~2025-01-07 | MMUS_ITS ---
US breast biopsy LT w image, MM post biopsy diagnostic LT EXAMINATION: US GUIDED NEEDLE BIOPSY WITH VACUUM ASSISTANCE DATE: 01/07/2025 10:32 DISHWASHING MACHINE REPAIRER INDICATION: Left breast mass seen on recent examination. Ultrasound-guided core biopsy is requested to evaluate for malignancy. BREAST PARENCHYMAL COMPOSITION: Not dense: There are scattered areas of fibroglandular density. TECHNIQUE AND FINDINGS: The risks and potential benefits of the procedure were discussed with the patient, and written informed consent was obtained. After sterile preparation of the left breast, 1% lidocaine was utilized for local anesthesia. 1% lidocaine with epinephrine was used for deep anesthesia. A 10G vacuum-assisted biopsy gun needle was advanced through to the outer edge of the region of interest from a medial approach utilizing sonographic guidance. A total of 4 tissue core samples were obtained through the lesion. An Inrad tissue marker clip was then placed at the biopsy site. Hemostasis was achieved. The patient tolerated procedure well and there was no evidence of immediate complication. The patient was given verbal instructions partly is from the department. Left breast mammograms to document tissue marker clip placement. The tissue samples were submitted to surgical pathology for histologic analysis. IMPRESSION: 1. Successful ultrasound-guided vacuum-assisted biopsy of left breast mass with post procedure mammogram for marker placement. Please refer to pathology report for histologic analysis. Reviewed, dictated and finalized at location B. WASHING MACHINE REPAIRER IMPRESSION: 1. Successful ultrasound-guided vacuum-assisted biopsy of left breast mass wit h post procedure mammogram for marker placement. Please refer to pathology repo rt for histologic analysis.
--- OUTSIDE RECORDS SUMMARY | 2025-01-07 09:17 | XMS_ITS | Clinical Summary ---
Author Organization [facility] Address [address] [place] [address] Care Team Providers Care Um Rn Name Role Phone Zechariah Chang MD Primary Care Prov ider Jo Ann Espinoza RN Unavailable Janet vailable Allergies Active Allergy Reactions Criticality Noted Date Comments Doxycycline Swelling,Nausea & Vomiting Medium 07/13/19 23 Swelling of legs Erythromycin Nausea & Vomiting Low 06/03/2017 Penicillins Nausea & Vomiting Low 06/03/2017 Medications albuterol HFA (PROVENTIL HFA,VENTOLIN HFA) 90 mcg/actuation inhaler Inhale 2 puffs. Acti ve budesonide-fo rmoterol (SYMBICORT) 160-4.5 mcg/actuation inhaler Inhale 2 (two) times a day Active ezetimibe (ZETIA) 10 mg tabletIndicat ions:hypercho lesterolemia Take 10 mg by mouth nightly 018 Active lisinopril (PRINIVIL,ZES TRIL) 30 mg tabletIndicat ions:hyperten erasto Take 30 mg by mouth early childhood lead teacher before breakfast [address] (PROTONIX) 40 mg EC tablet Take 40 mg by mouth early childhood lead teacher before breakfast 021 Active rosuvastatin (CRESTOR) 40 mg tablet Take 40 mg by mouth early childhood lead teacher before breakfast 021 Active cholecalcifer ol (VITAMIN D-3) 2000 unit capsule Take 2,000 Units by mouth early childhood lead teacher before breakfast Active aspirin 81 mg enteric coated tabletIndicat ions:preventi on of thrombosis Take 81 mg by mouth early childhood lead teacher before breakfast Active oxyCODONE (ROXICODONE) 5 mg immediate release tabletIndicat ions:Pain TAKE ONE TO TWO TABLETS EVERY 4 TO 6 HOURS PRN PAIN 40 tablet 021 Active Wegovy 1.7 mg/0.75 mL auto-injector Indications:C oronary artery disease involving nenana coronary artery of nenana heart without angina pectoris INJECT 1 DOSE (1.7MG) SUBCUTANEOUSLY ONCE A WEEK 4 mL 025 Active semaglutide (WEGOVY) 1 mg/0.5 mL auto-injector Indications:H istory of [place] (myocardial infarction),H istory of CVA (cerebrovascu lar accident) Inject 1 mg under the skin every 7 days Start after completing 4 weekly doses of 0.5 mg. 2 mL 025 2024 Discontinued(A lternate therapy) semaglutide (WEGOVY) 1.7 mg/0.75 mL auto-injector Indications:W eight Loss Management for Obese Patient (BMI >= 30),cardiovas cular event risk reduction in obesity,weigh t loss management, obese adolescent Inject 1.7 mg under the skin every 7 days 3 mL 025 2024 Discontinued Active Problems Problem Noted Date Diagnosed Date Metabolic disorder 11/03/2024 History of cerebrovascular accident (CVA) in debbie lthood 11/03/2024 Encounter for weight management 08/26/2024 Assessment & Plan (10/02/2024 3:37 PM CDT): Thank you for joining your new patient appointment today. It was a pleasure to meet with you. Please read the following information today to make sure you have everything prepared for your next appointment. 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 The weight gain will recur if you stop treating the disease. Currently, anti obesity medications are recommended for boat dock operator use just like any other medications to control chronic illnesses. Frequent monitoring and adjusting of the medications are also very important, so it is important to make and keep follow up appointments as scheduled. Before your next appointment, please complete the following tests: Abdominal ultrasound. For the ultrasound: [facility] Radiology Scheduling . Get directions to our [...] on paper or in an karolina like [employer], [employer], or similar programs. Avoid ultra-processed foods as [...] The [facility] conducts a wide array of clinical studies evaluating approaches to diet, nutrition and disease prevention. We are currently recruiting subjects for multiple clinical trials. If you are interested please call [phone]. [facility] Weight Loss Daily Food Intake: 50% Fruits and Category 1 Vegetables 30% Grains, Legumes, and Category 2 Vegetables 20% Proteins FRUITS serving size as indicated, approx 80 calories Apple- 1 medium Apricots- 3 medium Figs- 2 Grapefruit- 1 Cantaloupe- cup Cherries- 15 [place]- medium Berries (blackberries, strawberries, blueberries, raspberries)- 1 and cup Grapes- 15 Honeydew- small [place]- 2 small Nectarine- 2 small Loíza- 1 large Watermelon- 2 cups Tiffin- 2 small Tangerines- 2 small Pear- 1 medium CATEGORY 1 VEGETABLES unlimited servings, approx 10-25 calories per cup Artichokes Asparagus Bamboo Shoots Flores Sprouts Bok Joya Broccoli Brussel Sprouts Cabbage Cauliflower Celery Chives Joo Greens [place] Dandelion Greens Pickles Eggplant Escarole Mustard Greens [...] size cup , approx 45 calories Beets [employer] Squash [place] Squash Carrots- c cook, 2 med, 12 baby Sweet potato ( medium) Yams ( medium) [place] Gold Potato ( medium) LEGUMES serving size cup, approx 110 calories Split Peas Sweet Green Beans Fat free refried beans Green soy beans Hummus Beans- Black, Cannellini, Garbanzo, Kidney, Tyler, Mung, [place], [place]camp[place]. Lentils PROTEIN serving size 5-6 oz [...] (2 T) Peanuts (7-8) Pistachios (2 T) [place] seeds (2T) Pumpkin Seeds (2T) Sesame Seeds (2 T) Nut butter made from above nuts (1 T) OILS- should be cold pressed serving size 1 teaspoon approx 40 calories Avocado Flaxseed [place] Canola Extra [place] Olives- 8-10 medium Martinez (from canola oil) DAIRY serving size: 6 oz or as indicated approx 80 calories Buttermilk Fat free Yogurt Plain low fat Yogurt (4 oz) Milk (nonfat or 2%) Soy Milk BEVERAGES unlimited Coffee- decaffeinated Herbal tea- decaffeinated Green tea- decaffeinated Water: plain, seltzer, or flavored seltzer CONDIMENTS unlimited Cinnamon Lemon Jamul Mustard Tamari soy sauce Vinegar Stevia other herbs/spices Extracts (vanilla, almond, etc) [facility] Weight Loss Daily Food Intake: 50% Fruits and Category 1 Vegetables 30% Grains, Legumes, and Category 2 Vegetables 20% Proteins FRUITS serving size as indicated, approx 80 calories Apple- 1 medium Apricots- 3 medium Figs- 2 Grapefruit- 1 Cantaloupe- cup Cherries- 15 Kevin- medium Berries (blackberries, strawberries, blueberries, raspberries)- 1 and cup Grapes- 15 Honeydew- small [place]- 2 small Nectarine- 2 small Loíza- 1 large Watermelon- 2 cups Tiffin- 2 small Tangerines- 2 small Pear- 1 medium CATEGORY 1 VEGETABLES unlimited servings, approx 10-25 calories per cup Artichokes Asparagus Bamboo Shoots Flores Sprouts Bok Joya Broccoli Brussel Sprouts Cabbage Cauliflower Celery Chives Joo Greens [place] Dandelion Greens Pickles Eggplant Escarole Mustard Greens [...] size cup , approx 45 calories Beets [employer] Squash [place] Squash Carrots- c cook, 2 med, 12 baby Sweet potato ( medium) Yams ( medium) [place] Gold Potato ( medium) LEGUMES serving size cup, approx 110 calories Split Peas Sweet Green Beans Fat free refried beans Green soy beans Hummus Beans- Black, Cannellini, Garbanzo, Kidney, Tyler, Mung, [place], [place]camp[place]. Lentils PROTEIN serving size 5-6 oz [...] (2 T) Peanuts (7-8) Pistachios (2 T) [place] seeds (2T) Pumpkin Seeds (2T) Sesame Seeds (2 T) Nut butter made from above nuts (1 T) OILS- should be cold pressed serving size 1 teaspoon approx 40 calories Avocado Flaxseed [place] Can[place] Extra [place] Olives- 8-10 medium Martinez (from canola oil) DAIRY serving size: 6 oz or as indicated approx 80 calories Buttermilk Fat free Yogurt Plain low fat Yogurt (4 oz) Milk (nonfat or 2%) Soy Milk BEVERAGES unlimited Coffee- decaffeinated Herbal tea- decaffeinated Green tea- decaffeinated Water: plain, seltzer, or flavored seltzer CONDIMENTS unlimited Cinnamon Lemon Jamul Mustard Tamari soy sauce Vinegar Stevia other herbs/spices Extracts (vanilla, almond, etc) [facility] Metabolic Weight Loss Ultra-Processed Food Group [...] BMI 41. Coronary artery disease invo lving nenana coronary artery of nenana heart without angina pectoris 08/26/2024 Primary hypertension 08/26/2024 Mixed hyperlipidemia 08/26/2024 LARRY on CPAP 08/26/2024 Assessment & Plan (10/02/2024 1:04 PM CDT): Continue current CPAP use Discussed role of weight loss in improving LARRY sx. COPD (chronic obstructive pulmonary disease) 03/2024 Myalgia 02/28/2022 Complete tear of left rotator cuff 09/01/2020 Overview (09/01/2020): Added automatically from request for surgery [id number] Chronic left-sided low back pain with left-sided sciatica 06/03/2017 Radiculopathy, lumbosacral region 06/03/2017 Spinal stenosis of lumbar re gion with neurogenic claudication 06/03/2017 Lumbosacral spondylosis without myelopathy 06/03 Encounters Date Type Department Care Team Description 11/23/2024 Orders Only [facility] Metabolic Weight Management [address] [place] [address] Emily Khan MD Coronary artery disease involving nenana coronary artery of nenana heart without angina pectoris (Primary Dx) 11/06/2024 1:40 PM CDT Office Visit [facility] Metabolic Weight Management [address] [place] [address] Emily Khan MD Encounter for weight management (Primary Dx); Metabolic disorder; Class 3 drug-induced obesity with serious comorbidity and body mass index (BMI) of 40.0 to 44.9 in adult (HCC); Coronary artery disease involving nenana coronary artery of nenana heart without angina pectoris; LARRY on CPAP; Primary hypertension; Mixed hyperlipidemia; History of [place] (myocardial infarction); History of CVA (cerebrovascular accident) from Last 3 Months Surgical History Surgery [...] Answered Alcohol Use Standard Drinks/Week Comments Yes 2 (1 standard drink = 0.6 oz pur e alcohol) PHQ-2 Answer Date Recorded PHQ-2 Total Score (If total score is 3 or more points, staff should administer the PHQ-9) 0 02/13/2022 AUDIT-C Answer Date Recorded Q1: How often do you have a drink containing alc ohol? 2-3 times a week 11/06/2024 Q2: How many drinks containi ng alcohol do you have on a typical day when you are drinking? 1 or 2 11/06/2024 Q3: How often do you have si x or more drinks on one occasion? 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 Gender Identity Not on file Sexual Orientation Straight 03/30/2021 4: 00 PM INTEGRATION TECHNICIAN Last Filed Vital Signs Vital Sign Reading Time Taken Comments Blood Pressure 130/85 11/06/2024 1:50 PM CDT Pulse 75 11/06/2024 1:50 PM CDT Temperature 36.6 C (97.9 F) 11/06/2024 1:50 PM CDT Respiratory Rate 17 02/28/2022 3:41 PM INTEGRATION TECHNICIAN Oxygen Saturation 98% 11/06/2024 1:50 PM CDT Inhaled Oxygen Concentration - - Weight 106.8 kg (235 lb 6.4 oz) 11/06/2024 1:50 PM CDT Height 157.5 cm (5' 2.01) 11/06/2024 1:50 PM CD T Body Mass Index 43.04 11/06/2024 1:50 PM CDT Plan of Treatment Health Maintenance [...] 2024 04/20/2024 Medical Devices Implanted Type Area Automatic Transmission Mechanic Device Identifier Shelf Expiration Date Model / Serial / Lot Jt Replacements Knee Bilateral: Knee [employer] Ar-1927bct Corkscrew Suturetape 5.5mm 14.7mm Bioabsorbable Full Thread 1.3mm - [id number] Implanted:Qty: 1 on 09/16/2020 by Miguel Angel Farias MD at [facility] Left: Shoulder [employer] 05/25/2022 AR-1927BCT / / [id number] [employer] Ar-1927bct Corkscrew Suturetape 5.5mm 14.7mm Bioabsorbable Full Thread 1.3mm - [id number] Implanted:Qty: 1 on 09/16/2020 by Miguel Angel Farias MD at [facility] Left: Shoulder [employer] 05/25/2022 AR-1927BCT / / [id number] [employer] Ar-1927bct Corkscrew Suturetape 5.5mm 14.7mm Bioabsorbable Full Thread 1.3mm - [id number] Implanted:Qty: 1 on 09/16/2020 by Miguel Angel Farias MD at [facility] Left: Shoulder [employer] 05/25/2022 AR-1927BCT / / [id number] [employer] Ar-2324 Bcm Swivelock 4.75mm 24.5mm Self Punch Vent Shoulder [place] Suture - [id number] Implanted:Qty: 1 on 09/16/2020 by Miguel Angel Farias MD at [facility] Left: Shoulder [employer] 05/25/2024 AR-[id number] / / [id number] [employer] Ar-2324 Bcm Swivelock 4.75mm 24.5mm Self Punch Vent Shoulder [place] Suture - [id number] Implanted:Qty: 1 on 09/16/2020 by Miguel Angel Farias MD at [facility] Left: Shoulder [employer] 05/25/2024 AR-[id number] / / [id number] Insurance [place]IC[place] MEDICARE [facility] Care Teams Um Rn Relationship Specialty Start Date End Date Zechariah Chang MD PCP - General 02/01/17 Jo Ann Espinoza, RN Registered Nurse 06/03/17
--- OUTSIDE RECORDS SUMMARY | 2025-01-07 09:17 | XMS_ITS | Clinical Summary ---
Author Organization [facility] Address [address] [place] [address] Care Team Providers Care Control And Recovery Special Tactics Name Role Phone Zechariah Chang MD Primary Care Provider + Brigitte Small RN Unavailable [phone] Source Comments [facility],non-owned Affiliates and Associated Physician Practices is amultiple site organization consisting of ambulatory clinics and hospital sitesin [place], [place], [place] and [place]. This disclosure is being madepursuant to the Care Everywhere program and may not contain all information available regarding this patient. Last updated 17.[facility] Allergies Active Allergy Reactions Criticality Noted Date [...] and heating? Not hard at all 07/13/2022 [facility] [place] of Occupat ional Health - Occupational Stress [...] place to sleep or slept in a mcc (including now)? No 07/13/2022 Comments No Sex [...] mL/min/1.7 3 m2 07/17/2022 2:55 AM CDT [facility] Blood BLOOD SPECIMEN / Unknown Lab Venipuncture / Unknown 07/17/2022 2:11 AM CDT 07/17/2022 2:27 AM CDT Mckenzie Overton MD LAB - CHEMISTRY ORDERABLES Final Result Performing Organization Address City/State/[facility] Co de Phone Number [facility] [address] [place] [address], [facility] [phone] from Last 3 Months or Most Recently Relevant to [place] [address] MEDICARE [facility] [place] [address] [employer] MEDICARE [facility] THIRD [employer]PUBL[employer] LIABILITY [facility] Advance Directives * Full Code (Latest Code Status on File) Date Activated Date Inactivated Comments 07/13/2022 7:48 AM 07/18/2022 1:20 PM * Full Code Date Activated Date Inactivated Comments 07/30/2013 5:01 PM 07/31/2013 11:06 AM Care Teams Control And Recovery Special Tactics Relationship Specialty Start Date End Date Zechariah Chang MD [address] [address] PCP - General Family Medicine 07/09/13 Brigitte Small, RN Wedding Photographer 07/30/13
--- OUTSIDE RECORDS SUMMARY | 2025-01-07 09:18 | XMS_ITS | Patient Health Record ---
Author Organization [facility] Address [address] [place], [place] [id number] Care Team Providers Care Sterilization Tech Name Role Phone JosephsteviedannyDOMINIC Unavailable Zechariah Chang Unavailable Unavailable Reason For Referral No Information Social History Social History Additional Details Category Social Info Options Details Migrated Social History Migrated Social History Smoking Status : Never smoked , Alcohol intake : , History of tobacco use : Plan Of Treatment No Information Insurance Providers Payer Name Payer Address Payer Phone Subscriber Number Group Number Insured Name Patient Relationship to Insured Coverage Start Date Coverage End Date [facility] [address] [address] [place] [address] [id number] KAY BRUMFIELD Self - patient is the insured
--- NOTE | 2025-01-07 10:25 | S_PTH ---
PATIENT: Fabi Jin LOC: [facility] U#:[id number] AGE/SX: 69/F ROOM: RE01/07/[address]: Alona Corona MD : 1955 BED: DIS: 01/07/2025 SPEC #: [id number] RECD: 01/07/25 11:35 STATUS: CALLIE RESari #: [id number] JOEL: 01/07/25 10:[address]: Alona Corona DEPT: [facility] Surgical RECD BY: Veronica Pina ENTERED: 01/07/25 11:36 SP TYPE: Surgical OTHR DR: Ana Cox, LITHOGRAPHIC ETCHER Tissues: A - Breast Biopsy Procedures: Hematoxylin and Eosin Stain Gross and Microscopic Level 4 ER-60 HI-60 MIB-60 HER 2-60
== END 2025-01-07 08:57 | disposition home or self-care (01) ==
LOC: ANHFOHIMG 08:57
PROVIDERS: PCP Nurse Practitioner Family; Visit Provider Surgery
DX: R92.8 Other abnormal and inconclusive findings on diagnostic imaging of breast (principal); N63.24 Unspecified lump in the left breast, lower inner quadrant; N63.25 Unspecified lump in the left breast, overlapping quadrants
CPT/HCPCS: 19083; 77065; 88305; 88360; A4648